=== PATIENT | female | born 1950 | race Caucasian/White ===

== ENCOUNTER 2022-10-05 13:59 | Outpatient (CLI) | payer MEDICARE, SELFPAY ==
--- NOTE | ~2022-10-05 | XR_ITS ---
XR hand RT min 3V 10/05/2022 14:25 Indication: Right hand pain Procedure: 4 views of the right hand Comparison: No prior studies for comparison. Findings: Osteopenia. There is polyarticular osteoarthritis with ventral subluxation at the second-fi fth MCP joints. Degenerative changes involve the hand and wrist. No acute fracture or traumatic malal ignment. 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 Reviewed, dictated and finalized at location A. 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
== END 2022-10-05 14:00 | disposition home or self-care (01) ==
PROVIDERS: PCP Family Medicine; Visit Provider Physician Assistant
DX: S69.90XA Unspecified injury of unspecified wrist, hand and finger(s), initial encounter (principal); M19.041 Primary osteoarthritis, right hand; X58.XXXA Exposure to other specified factors, initial encounter
CPT/HCPCS: 73130

== ENCOUNTER 2022-12-06 13:20 | Outpatient (CLI) | payer MEDICARE, SELFPAY ==
--- NOTE | ~2022-12-06 | MM_ITS ---
EXAMINATION: MM screening kurt BI w santosh HISTORY: Screening mammogram TECHNIQUE: Craniocaudal and mediolateral oblique 3-D tomosynthesis images were obtained and synthetic 2-D images were generated. CAD analysis was submitted and interpreted. COMPARISON: 04/06/2018, 05/30/2016, 08/08/2013 bilateral screening mammogram examinations BREAST PARENCHYMAL COMPOSITION: There are scattered areas of fibroglandular density. FINDINGS: There is no evidence of suspicious mass, calcification, or architectural distortion to sugg est malignancy in either breast. There has been no suspicious interval change. IMPRESSION: 1. No mammographic evidence of malignancy. 2. Recommend routine screening mammography in one year. BI-RADS Category 1: Negative Reviewed, dictated and finalized at location A.
--- NOTE | ~2022-12-06 | DEXA_ITS ---
Bone Density Report Name: JENNIFER FREDERICK I Age: 72 Sex: Female Ethnicity: White Date of : 1950 Indication: postmenopausal; screening for osteoporosis; height loss; Referring Provider: KENNETH CONWAY Study: Bone densitometry was performed. Exam Date: December 06, 2022 Accession number: [id number] Bone Density: Region BMD T-score Z-score Classification AP Spine(L1-L4) 1.180 1.2 3.5 Normal Femoral Neck (Left) 0.776 -0.7 1.3 Normal Total Hip (Left) 0.760 -1.5 0.2 Osteopenia Femoral Neck (Right) 0.691 -1.4 0.5 Osteopenia Total Hip (Right) 0.867 -0.6 1.0 Normal Total Hip Mean 0.814 -1.1 0.6 Osteopenia World Health Organization criteria for BMD impression classify patients as: Normal (T-score at or above -1.0), Osteopenia (T-score between -1.0 and -2.5), or Osteoporosis (T-score at or below -2.5). 10-year Fracture Risk(1): Major Osteoporotic Fracture 11% Hip Fracture 1.7% Reported Risk Factors: [place] (), Neck BMD=0.691, BMI=25.1 (1) FRAX(R) Version 3.08. Fracture probability calculated for an untreated patient. Fracture probability may be lower if the patient has received treatment. Previous Exams: Region Exam Age BMD T-score BMD Change BMD Change Date g/cm2 vs Baseline vs Previous AP Spine (L1-L4) 12/06/2022 72 1.180 1.2 -0.041 (-3.4%) -0.041 (-3.4%) 05/30/2016 66 1.221 1.6 Total Hip(Left) 12/06/2022 72 0.760 -1.5 -0.147 (-16.2% -0.147 (-16.2% 05/30/2016 66 0.907 -0.3 Total Hip(Right) 12/06/2022 72 0.867 -0.6 -0.047 (-5.1%) -0.047 (-5.1%) 05/30/2016 66 0.914 -0.2 *Denotes significance at 95% confidence level, LSC for AP Spine = 0.022 g/cm2, LSC for Total Hip = 0.027 g/cm2 Clinical Information Provided by Patient: Has used the following medications: Vitamin D, Calcium Patient maximum height was 67 Menopause Age: 51 Drinks caffeinated beverages Onset of menses at age 13 Number of children 0 Impression: The patient has low bone mass, based on the Left Total Hip T-score. The patient has an estimated ten-year risk of hip fracture of 1.7% and an estimated ten-year risk of major fracture of 11%, based on the WHO FRAX algorithm. The BMD for the AP Spine (L1-L4) decreased, changing by -3.4% since the last DXA exam. The BMD for the Total Hip(Left) decreased, changing by -16.2% since the last DXA exam. The BMD for the Total Hip(Right) decreased, changing by -5.1% since the last DXA e
== END 2022-12-06 13:21 | disposition home or self-care (01) ==
LOC: ANHIMG 13:25
PROVIDERS: PCP Family Medicine; Visit Provider Physician Assistant Medical
DX: Z12.31 Encounter for screening mammogram for malignant neoplasm of breast (principal); N95.1 Menopausal and female climacteric states; M85.851 Other specified disorders of bone density and structure, right thigh; M85.852 Other specified disorders of bone density and structure, left thigh
CPT/HCPCS: 77063; 77067; 77080

== ENCOUNTER 2024-06-03 14:08 | Inpatient (IN) | payer MEDICARE, SELFPAY ==
[2024-06-03] VITALS (19 sets, daily range): BP systolic 122–151; BP diastolic 59–80; PULSE 75–106; RESP 13–18; TEMP 36.5–36.7; O2SAT 92–98; BMI 24.3
--- NOTE | ~2024-06-03 | XR_ITS ---
EXAMINATION: XR hip LT 2V w AP pelvis DATE: 06/03/2024 15:55 INDICATION: Fall. TECHNIQUE: An anteroposterior view of the pelvis and 2 views of left hip were obtained. COMPARISON: None. FINDINGS: There is a subcapital fracture of left femoral neck. The distal fracture fragment demonstra cricket 3.0 cm shortening, 1.6 cm anterior displacement, and varus angulation. There is mild left hip ost eoarthritis. There is at least mild lumbar spondylosis. IMPRESSION: 1. Subcapital fracture of left femoral neck. 2. Mild left hip osteoarthritis. Reviewed, dictated and finalized at location A. ICAL TECHNICIAN
--- NOTE | ~2024-06-03 | CT_ITS ---
EXAMINATION: CT brain wo con DATE: 06/03/2024 14:53 INDICATION: Fall with posterior head injury TECHNIQUE: Computed tomography (CT) of the head was performed without intravenous contrast. Sagittal and coronal reconstructions were performed. The mA was adjusted according to patient size. Iterative reconstruction technique was employed. The dose-length product was 681.00 mGy-cm. COMPARISON: head CT dated 03/05/17 FINDINGS: Bilateral parietal scalp hematomas, left greater than right. No calvarial fracture. No acute intracra nial hemorrhage, acute infarction or abnormal extra axial fluid collection. There is mild to moderate scattered white matter hypoattenuation consistent with chronic small vessel ischemic disease. Symmet ellen prominence of the sulci and ventricles consistent with mild to moderateage-appropriate diffuse ce rebral volume loss. No mass/mass effect. Changes of bilateral intraocular lens replacement. The orbi ts and mastoid air cells are normal. Partial opacification of the posterior most left ethmoid air maryellen l. IMPRESSION: 1. No fracture or acute intracranial process. 2. Age-related changes including mild to moderate diffuse volume loss and mild to moderate scattered white matter hypoattenuation consistent with chronic small vessel ischemic disease. Reviewed, dictated and finalized at location A. GENCY VEHICLE DISPATCHER IMPRESSION: 1. No fracture or acute intracranial process. 2. Age-related changes including mild to moderate diffuse volume loss and mild to moderate scattered white matter hypoattenuation consistent with chronic smal l vessel ischemic disease.
--- NOTE | ~2024-06-03 | XR_ITS ---
EXAMINATION: XR hip LT min 2V DATE: 06/06/2024 16:25 INDICATION: Bipolar left hip hemiarthroplasty. Postop. TECHNIQUE: 2 views of left hip were obtained. COMPARISON: Left hip radiographs 06/03/2024 FINDINGS: There is a total left hip arthroplasty in near-anatomic alignment. No fracture. There is ga s in the soft tissues, consistent with recent surgery. IMPRESSION: 1. Total left hip arthroplasty in near-anatomic alignment. Reviewed, dictated and finalized at location A. ER POWDER BLENDER
--- NOTE | ~2024-06-03 | CT_ITS ---
EXAMINATION: CT cervical spine wo con DATE: 06/03/2024 14:53 INDICATION: Fall. TECHNIQUE: Computed tomography (CT) of the cervical spine was performed without intravenous contrast. Automated exposure control and iterative reconstruction technique were employed. The dose-length pro duct was 241.97 mGy-cm. COMPARISON: None FINDINGS: There is 5 degrees dextrocurvature of cervical spine. There is 2 mm retrolisthesis of C3 on C4, C4 on C5, and C5 on C6. Vertebral body heights are normal. There is mildly decreased disc height at C2-C3, severely decreased disc height from C3-C4 through C6-C7, and mildly decreased disc height at C7-T1. The following disc levels are specifically discussed: C2-C3: There is mild bilateral uncovertebral joint osteoarthritis. There is mild right and severe lef t facet joint osteoarthritis. There is mild left neural foraminal stenosis. There is no central canal stenosis. C3-C4: There is severe bilateral uncovertebral joint osteoarthritis. There is severe bilateral facet joint osteoarthritis. There is mild bilateral neural foraminal stenosis. There is mild central canal stenosis. C4-C5: There is severe bilateral uncovertebral joint osteoarthritis. There is severe bilateral facet joint osteoarthritis. There is mild right and moderate left neural foraminal stenosis. There is mild central canal stenosis. C5-C6: There is severe bilateral uncovertebral joint osteoarthritis. There is severe bilateral facet joint osteoarthritis. There is mild right and moderate left neural foraminal stenosis. There is mild central canal stenosis. C6-C7: There is severe bilateral uncovertebral joint osteoarthritis. There is severe bilateral facet joint osteoarthritis. There is mild bilateral neural foraminal stenosis. There is mild central canal stenosis. C7-T1: There is no uncovertebral joint osteoarthritis. There is severe bilateral facet joint osteoart hritis. There is mild bilateral neural foraminal stenosis. There is no central canal stenosis. IMPRESSION: 1. No fracture. 2. Severe cervical spondylosis. Reviewed, dictated and finalized at location A. SHREDDER TENDER
--- NOTE | ~2024-06-03 | XR_ITS ---
EXAMINATION: XR chest 1V portable DATE: 06/03/2024 20:01 INDICATION: Fall. TECHNIQUE: A single frontal view of the chest was obtained. COMPARISON: Chest 2 views 03/02/2011, chest CT 04/02/2015 FINDINGS: A calcified right lung nodule and calcified right hilar and mediastinal lymph nodes are con sistent with old granulomatous disease. No pleural effusion or pneumothorax. The heart size is normal . There is a large hiatal hernia. IMPRESSION: 1. Large hiatal hernia. Reviewed, dictated and finalized at location A. DELIVERER IMPRESSION: 1. Large hiatal hernia.
[2024-06-03] MEDS: SODIUM CHLORIDE 0.9% IV 1,000 ML 999 ML IV CONT (16:00)
[2024-06-03] MEDS: KETOROLAC 15 MG/ML VIAL (*BKC) IV PUSH (16:00)
[2024-06-03 17:53] LABS: Basophils Percent Auto 0.2 % (0.2-1.2); Eosinophils Percent Auto 0.2 % (0-4.4); Hematocrit 36.1 % (37.0-47.0); Hemoglobin 11.9 g/dL (12.0-15.0); Immature Granulocyte Absolute 0.06 K/mm3 (0.00-0.031); Immature Granulocyte Percent A 0.5 % (0-0.5); Mean Corpuscular Hemoglobin 30.5 pg (26-34); Mean Corpuscular Volume 92.6 fl (80-100); Mean Platelet Volume 9.2 fl (7.4-10.4); Monocytes Absolute Auto 0.7 K/mm3 (0.1-0.6); Monocytes Percent Auto 5.9 % (2.6-8.5); Neutrophils Absolute Auto 10.7 K/mm3 (1.3-6.7); Neutrophils Percent Auto 88.2 % (45.5-73.1); Platelet Count Result 199 k/mm3 (150-375); Red Cell Distribution Width 13.8 % (11.5-14.5); White Blood Count 12.1 K/mm3 (4.5-10.0)
[2024-06-03 18:08] LABS: Alanine Aminotransferase 17 U/L (6-35); Albumin Level 3.8 g/dL (3.5-5.1); Alkaline Phosphatase 86 U/L (38-126); Anion Gap 3 mmol/L (4-12); Aspartate Amino Transferase 24 U/L (14-36); Bilirubin,Total 0.5 mg/dL (0.2-1.3); Blood Urea Nitrogen 9 mg/dL (7-17); Calcium 8.3 mg/dL (8.4-10.2); Carbon Dioxide 23 mmol/L (22-30); Chloride 106 mmol/L (98-107); Estimated CRCL calculation 55 ml/min; Estimated Glomerular Filt Rate > 60; Glucose 103 mg/dL (65-110); Potassium 3.8 mmol/L (3.4-5.0); Sodium 132 mmol/L (137-145)
[2024-06-03 18:09] LABS: INR 1.1; Prothrombin Time 14.3 Seconds (11.1-14.7)
--- NOTE | 2024-06-03 18:24 | ED_ITS ---
HPI - General Adult General Chief complaint: Extremity Injury, Lower Stated complaint: glf History of Present Illness HPI narrative: This is a 74-year-old female presenting after a ground level fall. She bent over to adjust her cat scratching post and fell backwards onto her left hip striking her head. she has not been able to bear weight since the fall. He did not lose consciousness. She does not use blood thinners. She called an ambulance and was brought to the hospital for Related Data Home Medications ?Medication ?Instructions ?Recorded ?Confirmed ?Last Taken ?Type fexofenadine 180 mg tablet 180 mg PO DAILY 10/21/20 06/03/24 06/03/24 History (Toya Allergy) multivitamin 1 tablet PO DAILY 10/21/20 06/03/24 Unknown History melatonin 10 mg capsule 10 mg PO QHS PRN insomnia 04/27/21 06/03/24 Unknown History Allergies Allergy/AdvReac Type Severity Reaction Status Date / Time oxytetracycline Allergy Unknown Unknown Verified 06/03/24 21:10 [facility] Past Medical History Medical History Normal colonoscopy Hiatal hernia Anxiety Surgical History Surgical History History of esophagogastroduodenoscopy (EGD) Family History Family History Other Family history of arthritis Hypertension Social History Social History Social History: POA: Dontrell (step daughter), she has a living will Smoking status: Never smoker Second hand tobacco smoke exposure: No Alcohol intake: never Substance use: never Substance use type: does not use Do You Feel Safe in your Home?: No Lack of Transportation: No Lack of Food: Never True Current Housing: I Have Housing Concerned About Future Housing: No Difficulty Paying Gas/Electric Bills: No Difficulty Paying for Meds: No Currently Unemployed: No Difficulty w/ Childcare or Family Care: No Living arrangements: [facility] Additional living arrangements comments: alone Occupation/Education: retired Gender identity (if verbalized by the patient): Female Spiritual care concerns: No Agree to blood products: Yes Exam 2 Narrative: APPEARANCE: No apparent distress. Head: atraumatic. EYES: EOMI, NOSE: Atraumatic NECK: Trachea midline RESPIRATORY: No increased rate of breathing clear to auscultation CARDIOVASCULAR: RRR, no peripheral edema ABDOMINAL: Non-distended soft nontender MUSCULOSKELETAl: left leg is shortened and laterally rotated, pulses intact, sensation and motor function intact NEURO: Alert. Moving 4/4 extremities SKIN:: Warm, dry. Normal color PSYCHIATRIC: Normal affect Course Vital Signs Vital signs: Vital Signs Temperature 97.9 F 06/03/24 14:19 Pulse Rate 76 06/03/24 14:19 Respiratory Rate 16 06/03/24 14:19 Blood Pressure 146/72 H 06/03/24 14:19 Pulse Oximetry 98 06/03/24 14:19 Oxygen Delivery Room Air 06/03/24 14:19 Temperature 97.8 F 06/03/24 16:59 Pulse Rate 83 06/03/24 16:59 Respiratory Rate 16 06/03/24 16:59 Blood Pressure 136/77 06/03/24 16:59 Pulse Oximetry 95 06/03/24 16:59 Oxygen Delivery Room Air 06/03/24 14:19 Medical Decision Making MDM Narrative Medical decision making narrative: -Course: 74-year-old female presenting after a ground level fall. Trauma workup significant for a subcapital left hip fracture. CT head and neck unremarkable. Screening lab work and chest x-ray unremarkable. Patient will be admitted hospital for further -DDX includes but is not limited to: hip fracture, UTI, pneumonia -Co-morbidities complicating care: Anxiety depression -Social determinants of health: patient lives on her own, ambulatory, without denies drugs or alcohol -Independent interpretation of studies: labs and imaging reviewed Independent EKG interpretation: Rhythm [sinus], Rate [98], [place] -[normal], [place] -[normal], QRS [narrow], QTC [normal], T waves -[negative for concerning inversions], ST Segments - [Negative for concerning elevations] Final interpretations: Sinus -Discussion of Management/Consultants:Kira Webster -Shared decision making / Disposition:admitted. Vital Signs Vital Signs: Vital Signs Temperature 97.9 F 06/03/24 14:19 Pulse Rate 76 06/03/24 14:19 Respiratory Rate 16 06/03/24 14:19 Blood Pressure 146/72 H 06/03/24 14:19 Pulse Oximetry 98 06/03/24 14:19 Oxygen Delivery Room Air 06/03/24 14:19 Temperature 97.8 F 06/03/24 16:59 Pulse Rate 83 06/03/24 16:59 Respiratory Rate 16 06/03/24 16:59 Blood Pressure 136/77 06/03/24 16:59 Pulse Oximetry 95 06/03/24 16:59 Oxygen Delivery Room Air 06/03/24 14:19 Lab Data 06/03/24 17:39 06/03/24 17:39 Labs: Lab Results 06/03/24 Range/Units 17:39 WBC Pending RBC Pending Hgb Pending Hct Pending MCV Pending MCH Pending MCHC Pending RDW Pending Plt Count Pending MPV Pending Immature Gran % (Auto) Pending Neut % (Auto) Pending Lymph % (Auto) Pending Ness % (Auto) Pending Eos % (Auto) Pending Baso % (Auto) Pending Lymph # (Auto) Pending Ness # (Auto) Pending Eos # (Auto) Pending Baso # (Auto) Pending Abs Immat Gran (auto) Pending Absolute Neuts (auto) Pending Absolute Nucleated RBC Pending Nucleated RBC % Pending PT 14.3 (11.1-14.7) Seconds INR 1.1 APTT 33.0 (22.3-36.8) Seconds Sodium 132 L (137-145) mmol/L Potassium 3.8 (3.4-5.0) mmol/L Chloride 106 (98-107) mmol/L Carbon Dioxide 23 (22-30) mmol/L Anion Gap 3 L (4-12) mmol/L BUN 9 (7-17) mg/dL Creatinine 0.70 (0.7-1.0) mg/dL Estim Creat Clear Calc 55 ml/min Estimated GFR > 60 (59 - ) Glucose 103 (65-110) mg/dL Calcium 8.3 L (8.4-10.2) mg/dL Total Bilirubin 0.5 (0.2-1.3) mg/dL AST 24 (14-36) U/L ALT 17 (6-35) U/L Alkaline Phosphatase 86 (38-126) U/L Total Protein 6.0 L (6.3-8.2) g/dL Albumin 3.8 (3.5-5.1) g/dL Discharge Plan Discharge Clinical Impression: Hip fracture Patient Disposition: Still a Patient Condition: Stable Patient Language: Mohawk Prescriptions: No Action fexofenadine [Toya Allergy] 180 mg tablet 180 mg PO DAILY multivitamin Tablet 1 tablet PO DAILY melatonin 10 mg capsule 10 mg PO QHS PRN (Reason: insomnia) bupropion HCl 100 mg tablet sustained-release 12 hr 100 mg PO QAM Qty: 30 3RF trazodone 50 mg tablet 50 mg PO QHS Qty: 90 4RF citalopram 40 mg tablet 40 mg PO DAILY Qty: 90 1RF alprazolam 0.5 mg tablet 0.5 mg PO TID PRN (Reason: anxiety) Qty: 90 1RF Follow-up/Referrals: Praveena Acosta MD [Primary Care Provider] -
[2024-06-03 19:06] LABS: Add Urine Microscopic? NO; Appearance Urine Clear (Clear); Bilirubin Urine Negative (Negative); Blood Urine Negative (Negative); Color Urine Yellow (Yellow); Glucose Urine UA Negative (Negative); Ketones Urine Trace mg/dL (Negative); Leukocyte Esterase Ur Negative LEU/UL (Negative); Nitrate Urine Negative (Negative); Protein Urine Negative (Negative); Urobilinogen Urine 0.2 mg/dL (<2.0); pH Urine 6.5 (5.0-9.0)
[2024-06-03] MEDS: ACETAMINOPHEN 500 MG TABLET 1000 MG PO (19:25)
--- NOTE | 2024-06-03 19:53 | ECG_ITS ---
Test Date: 2024-06-03 20:23:01 Measurements Intervals [place] Rate: 98 P: 56 W[place]: 204 QRS: -59 QRSD: 109 T: 62 QT: 386 QTc: 495 Interpretive Statements SINUS RHYTHM LEFT ANTERIOR FASCICULAR BLOCK [QRS AXIS <= -45, QR IN I, RS IN II] NONSPECIFIC ST AND T-WAVE ABNORMALITY No previous ECG available for comparison Electronically Signed On 06-04-2024 14:22:13 TALENT DIRECTOR by Cassi Osorio M.D.
--- NOTE | 2024-06-03 21:36 | P.HP_ITS ---
H&P: HPI History of Present Illness Date/Time: 06/03/24 20:50 Chief Complaint: Fall with left hip pain Narrative: 74-year-old female with past medical history of anxiety, depression hiatal hernia and osteopenia who presented to the ER via EMS after falling at [facility]. She reports that she was sweeping of the debris from her cat scratching tree when she lost her balance. She fell backwards and hit her head twice. She denies any preceding lightheadedness, dizziness or any loss of consciousness following the fall. She did have immediate pain to the left hip and noticed that her leg was rotated to the side added odd angle. She reports that she is not having any pain in the hip as long as she has not moved but with any movement the pain is quite severe. She does have chronic flat feet and is post to ambulate with a cane but she does not ambulate with a cane in her apartment. She had a Kelsey catheter placed while in the ER. She denies any preceding urinary symptoms. She has been having normal bowel movements. She denies any chest pain or shortness of breath. She does report significant anxiety that is been an ongoing issue since her about 7 years ago. She reports that she initially had to sore spots on her scalp after the fall which have resolved. Review of Systems 2 Review of Systems: 12 systems were reviewed with pertinent positives and negatives per HPI. Except as documented in the HPI, all other systems were reviewed and are negative. [facility] Past Medical History Medical History (Updated 06/03/24 @ 22:03 by Amberly Webster DO) Osteopenia DEXA scan 2022 demonstrated T-score-1.9 left hip Normal colonoscopy Hiatal hernia Anxiety Surgical History Surgical History (Updated 06/03/24 @ 21:54 by Amberly Webster DO) Dental root implant present Lower jaw History of left knee replacement (03/2015) Dr. Shankar Malone Status post cataract extraction of both eyes with insertion of intraocular lens History of esophagogastroduodenoscopy (EGD) Family History Family History Other Family history of arthritis Hypertension Social History Social History (Updated 06/03/24 @ 21:56 by Amberly Webster DO) Social History: She lives in [facility] [place] [facility]. She ambulates with a cane. To lifelong nonsmoker and denies alcohol use. She has a cat. Code status: Currently full code but she is unsure if she would actually want her wrote measures if her heart were to stop. She wants some time to consider her options. POA: Dontrell (step daughter), she has a living will Smoking status: Never smoker Second hand tobacco smoke exposure: No Alcohol intake: never Substance use: never Substance use type: does not use Do You Feel Safe in your Home?: No Lack of Transportation: No Lack of Food: Never True Current Housing: I Have Housing Concerned About Future Housing: No Difficulty Paying Gas/Electric Bills: No Difficulty Paying for Meds: No Currently Unemployed: No Education: Bachelor's Degree Difficulty w/ Childcare or Family Care: No Living arrangements: [facility] Additional living arrangements comments: [place] independently. She has a cat. Occupation/Education: retired Gender identity (if verbalized by the patient): Female Spiritual care concerns: No Agree to blood products: Yes Meds Home Medications and Allergies Home Medications ?Medication ?Instructions ?Recorded ?Confirmed ?Type fexofenadine 180 mg tablet 180 mg PO DAILY 10/21/20 06/03/24 History (Toya Allergy) multivitamin 1 tablet PO DAILY 10/21/20 06/03/24 History melatonin 10 mg capsule 10 mg PO QHS PRN insomnia 04/27/21 06/03/24 History trazodone 50 mg tablet 50 mg PO QHS #90 tabs 12/07/23 06/03/24 Rx citalopram 40 mg tablet 40 mg PO DAILY #90 tabs 01/20/24 06/03/24 Rx bupropion HCl 100 mg tablet,12 hr 100 mg PO QAM #30 tabs 04/02/24 06/03/24 Rx sustained-release alprazolam 0.5 mg tablet 0.5 mg PO TID PRN anxiety #90 tabs 04/10/24 06/03/24 Rx Allergies Allergy/AdvReac Type Severity Reaction Status Date / Time oxytetracycline Allergy Unknown Unknown Verified 06/03/24 21:10 Vital Signs Vital Signs - 24 hr 06/03/24 14:19 06/03/24 15:00 06/03/24 15:30 Temperature 97.9 F 97.8 F 97.8 F Pulse Rate 76 77 75 Respiratory Rate 16 14 16 Blood Pressure 146/72 H 126/76 151/79 H Pulse Oximetry 98 92 93 Oxygen Delivery Room Air 06/03/24 16:00 06/03/24 16:59 06/03/24 17:00 Temperature 97.8 F 97.8 F 97.9 F Pulse Rate 76 83 90 Respiratory Rate 16 16 16 Blood Pressure 150/80 H 136/77 147/75 H Pulse Oximetry 97 95 96 Oxygen Delivery 06/03/24 18:00 06/03/24 18:30 Temperature 97.9 F 97.7 F Pulse Rate 106 H 102 H Respiratory Rate 14 13 Blood Pressure 126/74 135/69 Pulse Oximetry 98 97 Oxygen Delivery Exam 2 Narrative: Weight 69 kg BMI 25.3 Const: Other: No acute distress, well-developed well-nourished, appears older than stated age HENMT: Other: Head is normocephalic but does have a small area of edema/hematoma to the right side of the crown of the head, mucous membranes are tacky, dental implants in place Eyes: Other: Pupils are equal and reactive with evidence of bilateral lens replacements, no scleral icterus, patient does intermittently close 1 eye or the other she states she does this when she is tired she denies any double vision or acute changes in vision Neck: Other: No JVD, no gross lymphadenopathy Resp: Other: Clear to auscultation bilaterally, no increased work of breathing Cardio: Other: The regular rate, regular rhythm, 2+ bilateral radial pedal pulses GI: Other: Soft, nontender, nondistended, positive bowel sounds : Other: Kelsey catheter in place with clear light yellow urine Skin: Other: Large bruise to the dorsum of the right hand, mild pallor, non jaundice, normal temperature to touch Neuro: Other: Alert oriented x4, speech is clear, no facial asymmetry, moves all extremities equally with the exclusion of the left lower extremity with known fracture, no localizing neurologic deficits noted during the course of conversation, patient does intermittently close 1 eye or the other but is able to open her eyes and focus on examiner and has otherwise normal extraocular movements Extrem: Other: The left lower extremity it is externally rotated at the hip and slightly shortened, pes planus of bilateral feet left greater than right Psych: Other: She reports anhedonia and anxiety but is otherwise pleasant and cooperative, judgment and insight intact H&P: Results Labs Labs: Laboratory Tests 06/03/24 17:39 06/03/24 17:39 06/03/24 17:39 WBC 12.1 H RBC 3.90 L Hgb 11.9 L Hct 36.1 L MCV 92.6 MCH 30.5 MCHC 33.0 RDW 13.8 Plt Count 199 MPV 9.2 Immature Gran % (Auto) 0.5 Neut % (Auto) 88.2 H Lymph % (Auto) 5.0 L [place] % (Auto) 5.9 Eos % (Auto) 0.2 Baso % (Auto) 0.2 Lymph # (Auto) 0.60 L [place] # (Auto) 0.7 H Eos # (Auto) 0.0 Baso # (Auto) 0.0 Abs Immat Gran (auto) 0.06 H Absolute Neuts (auto) 10.7 H Absolute Nucleated RBC 0.000 Nucleated RBC % 0.0 PT 14.3 INR 1.1 APTT 33.0 Sodium 132 L Potassium 3.8 Chloride 106 Carbon Dioxide 23 Anion Gap 3 L BUN 9 Creatinine 0.70 Estim Creat Clear Calc 55 Estimated GFR > 60 Glucose 103 Calcium 8.3 L Total Bilirubin 0.5 AST 24 ALT 17 Alkaline Phosphatase 86 Total Protein 6.0 L Albumin 3.8 Urine Color Yellow Urine Appearance Clear Urine pH 6.5 Ur Specific [place] 1.010 Urine Protein Negative Urine Glucose (UA) Negative Urine Ketones Trace H Ur Blood (Man) Negative Urine Nitrate Negative Urine Bilirubin Negative Urine Urobilinogen 0.2 Leukocyte Esterase Rfl Negative Impressions Head CT 06/03/24 14:59 (some motion artifact noted) IMPRESSION: 1. No fracture or acute intracranial process. 2. Age-related changes including mild to moderate diffuse volume loss and mild to moderate scattered white matter hypoattenuation consistent with chronic small vessel ischemic disease. Cervical Spine CT 06/03/24 15:04 IMPRESSION: 1. No fracture. 2. Severe cervical spondylosis. Hip/Pelvis X-Ray 06/03/24 15:57 IMPRESSION: 1. Subcapital fracture of left femoral neck. 2. Mild left hip osteoarthritis. Chest X-Ray 06/03/24 20:07 IMPRESSION: 1. Large hiatal hernia. All imaging (within my scope of practice) and EKGs personally reviewed and interpreted. And unless stated otherwise agree with radiologic and cardiology interpretation. Assessment and Plan Assessment and plan (1) Hip fracture: Qualifiers: Encounter type: initial encounter Fracture type: closed Laterality: l eft Qualified Code(s): S72.002A - Fracture of unspecified part of neck of left femur, initial encounter for closed fracture Code(s): S72.009A - Fracture of unspecified part of neck of unspecified femur, initial encounter for closed fracture Status: Acute (2) Depression: Qualifiers: Depression Type: persistent depressive disorder Qualified Code(s): F 34.1 - Dysthymic disorder Code(s): F32.A - Depression, unspecified Status: Acute (3) Acute hyponatremia: Code(s): E87.1 - Hypo-osmolality and hyponatremia Status: Acute (4) QT prolongation: Code(s): R94.31 - Abnormal electrocardiogram [ECG] [EKG] Status: Acute Plan Patient has left hip fracture. Fracture due to ground level fall with no preceding symptoms. Interestingly enough this is the same hip that demonstrated osteopenia on her DEXA scan in 2022. With patient surgery has been consulted. Patient has Toradol and Dilaudid ordered as needed for pain. Kelsey catheter has been placed for urine management due to immobility. Patient does have some mild acute hyponatremia. Possibly early SIADH verses some component of dehydration given patient does have mild ketones in her urine. Patient received 1 L normal saline bolus in the ER and will receive 1 L of LR at 150 mL an hour which will be stopped in the morning. Will repeat electrolyte panel in a.m. and monitor urine output closely. Patient's EKG did demonstrate pulmonary disease pattern with QT interval upper limit of normal. Although reluctant to do so given her ongoing anxiety and depression symptoms I do not 1 hold her anxiety medications but given QT prolongation I will hold Celexa for the short term. Will consider repeat EKG in 24-48 hours for re-evaluation. Quality VTE Prophylaxis VTE prophylaxis: mechanical ordered (SCDs) Hospitalist MIPS Advance Care Plan I have confirmed that the patient's Advanced Care Plan is present, code status is documented, or surrogate decision maker is listed in patient medical record.: Yes Medication Reconciliation I have utilized all available resources to obtain, update and review the patients current medications (includes all prescriptions, OTC, herbals, cannabis, and nutritional supplements).: Yes
--- NOTE | 2024-06-03 22:11 | PC.NURSE ---
Admission report to WILLIAN Massey.
[2024-06-03] MEDS: traZODone HCL 50 MG TABLET PO (23:03)
[2024-06-03] MEDS: LACTATED RINGERS 1,000 ML 125 ML IV CONT (23:03)
--- NOTE | 2024-06-04 02:44 | ADMGEN ---
This patient, Dayan Triplett, was admitted to 3 [facility] Surg Room 323-02. Patient/family oriented to hospital policies and general routines including ID bracelet, bed and alarms, visiting hours, pain management, procedures, bathroom and other care routines, personal items, smoking policy, room service/diet, and visiting hours. Information on how to activate the Rapid Response Team has been discussed. Patient/Family are encouraged to report perceived risks to care and to ask questions if they do not understand what they are told or what they should do.
[2024-06-04] MEDS: KETOROLAC 30 MG/ML VIAL (*BKC) IV PUSH ×3 (04:19→21:43)
[2024-06-04 06:00] VITALS: BP 133/64; PULSE 89; RESP 18; TEMP 36.8; O2SAT 93
[2024-06-04 07:10] LABS: Hematocrit 35.1 % (37.0-47.0); Hemoglobin 11.3 g/dL (12.0-15.0); Mean Corpuscular HGB Conc 32.2 g/dl (32-36); Mean Corpuscular Hemoglobin 30.4 pg (26-34); Mean Corpuscular Volume 94.4 fl (80-100); Mean Platelet Volume 9.3 fl (7.4-10.4); Platelet Count Result 186 k/mm3 (150-375); Red Blood Count 3.72 M/mm3 (4.2-5.4); Red Cell Distribution Width 13.9 % (11.5-14.5); White Blood Count 6.6 K/mm3 (4.5-10.0)
[2024-06-04 07:14] LABS: Anion Gap 1 mmol/L (4-12); Blood Urea Nitrogen 9 mg/dL (7-17); Calcium 8.7 mg/dL (8.4-10.2); Carbon Dioxide 25 mmol/L (22-30); Chloride 110 mmol/L (98-107); Estimated CRCL calculation 57 ml/min; Estimated Glomerular Filt Rate > 60; Glucose 91 mg/dL (65-110); Potassium 3.8 mmol/L (3.4-5.0); Sodium 136 mmol/L (137-145)
[2024-06-04 08:16] VITALS: O2SAT 94
[2024-06-04] MEDS: LORATADINE 10 MG TABLET PO (08:40)
[2024-06-04] MEDS: MULTIVITAMINS THERAPEUTIC TAB (*BKC) 1 TABLET PO (08:40)
[2024-06-04] MEDS: buPROPion HCL SR (12HR) 100 MG TABCR PO (08:41)
[2024-06-04 12:11] VITALS: BMI 24.3
[2024-06-04 13:44] VITALS: BP 128/75; PULSE 95; RESP 18; TEMP 36.8; O2SAT 94
--- NOTE | 2024-06-04 15:48 | P.PNIM_ITS ---
Progress Note: A&P Assessment and Plan (1) Hip fracture: Qualifiers: Encounter type: initial encounter Fracture type: closed Laterality: left Qualified Code(s): S72.002A - Fracture of unspecified part of neck of left femur, initial encounter for closed fracture Code(s): S72.009A - Fracture of unspecified part of neck of unspecified femur, initial encounter for closed fracture Status: Acute (2) Depression: Qualifiers: Depression Type: persistent depressive disorder Qualified Code(s): F34.1 - Dysthymic disorder Code(s): F32.A - Depression, unspecified Status: Acute (3) Acute hyponatremia: Code(s): E87.1 - Hypo-osmolality and hyponatremia Status: Acute (4) QT prolongation: Code(s): R94.31 - Abnormal electrocardiogram [ECG] [EKG] Status: Acute Plan Patient presents with hip pain after fall found to have left hip fracture. Fracture due to ground level fall with no preceding symptoms. Interestingly enough this is the same hip that demonstrated osteopenia on her DEXA scan in 2022. Orthopedic surgery was consulted. Patient has Toradol and Dilaudid ordered as needed for pain. Kelsey catheter was placed for urine management due to immobility. Patient had mild acute hyponatremia at 132 and she received 1 L normal saline bolus in the ER and was started on LR. Sodium better. IV fluids stopped. WBC was 12K but normal now so probably stress response. EKG showing NSR with LAFB and nonspecific ST and T wave changes. QTc 495. Celexa was held. Assuming care. She is stable for surgical repair. She remains NPO. Check Mag level. Subjective Date/time seen: 06/04/24 15:48 Interval history: 74yo female with anxiety, depression, hiatal hernia and osteopenia here for hip pain after a fall. Assuming care. Chart reviewed. Patient did sustain a head injury but no loss of consciousness. She denies any chest pain, palpitations or shortness of breath prior to the fall. She is up-to-date on her mammogram and bone scan. At [facility], she does walk the stairs and denies any symptoms of chest pain shortness of breath. She has no heart disease, hypertension or hyperlipidemia. She has never had a stress test. Exam Narrative: AF 98.3 128/75 95 18 94% ra Gen - NARD HEENT -NC/AT Chest - CTA bilaterally, nml RR CV - RRR S1/S2 Abd - Soft, NT/ND, Positive BS -Kelsey catheter secured draining clear yellow urine Ext - No pedal edema. 2+ PT pulses. left leg foreshortened. Psych - Nml mood and affect Skin - Warm and dry Objective Data Vital Signs Vital Signs: Vital Signs - 24 hr 06/03/24 16:00 06/03/24 16:59 06/03/24 17:00 Temperature 97.8 F 97.8 F 97.9 F Pulse Rate 76 83 90 Respiratory Rate 16 16 16 Blood Pressure 150/80 H 136/77 147/75 H Pulse Oximetry 97 95 96 Oxygen Delivery 06/03/24 18:00 06/03/24 18:30 06/03/24 19:01 Temperature 97.9 F 97.7 F Pulse Rate 106 H 102 H Respiratory Rate 14 13 Blood Pressure 126/74 135/69 130/74 Pulse Oximetry 98 97 Oxygen Delivery 06/03/24 19:16 06/03/24 19:31 06/03/24 20:01 Temperature Pulse Rate Respiratory Rate Blood Pressure 127/62 122/73 131/72 Pulse Oximetry Oxygen Delivery 06/03/24 21:16 06/03/24 21:31 06/03/24 21:45 Temperature Pulse Rate Respiratory Rate Blood Pressure 140/72 136/59 L Pulse Oximetry 92 Oxygen Delivery 06/03/24 21:46 06/03/24 22:00 06/03/24 22:17 Temperature Pulse Rate Respiratory Rate Blood Pressure 135/79 Pulse Oximetry 92 93 94 Oxygen Delivery 06/03/24 22:50 06/04/24 06:00 06/04/24 08:00 Temperature 98.1 F 98.3 F Pulse Rate 98 89 Respiratory Rate 18 18 Blood Pressure 131/65 133/64 Pulse Oximetry 93 93 Oxygen Delivery Room Air 06/04/24 08:16 06/04/24 13:44 Temperature 98.3 F Pulse Rate 95 Respiratory Rate 18 Blood Pressure 128/75 Pulse Oximetry 94 94 Oxygen Delivery Room Air Intake/Output Intake/Output: Intake & Output 06/01/24 06/02/24 06/03/24 06/04/24 23:59 23:59 23:59 23:59 Intake Total 1000 0 Output Total 1500 Balance 1000 -1500 Meds/Results Medications: Active Medications Generic Name Dose Route Start Last Admin Trade Name Freq PRN Reason Stop Dose Admin Alprazolam 0.5 mg 06/03/24 21:35 Alprazolam (*Crx) 0.5 Mg Tablet PO TID PRN anxiety Bupropion HCl 100 mg 06/04/24 09:00 06/04/24 08:41 Bupropion Hcl Sr (12hr) 100 Mg Tabcr PO 100 mg QAM LUDY Administration Citalopram Hydrobromide 40 mg 06/04/24 09:00 Citalopram Hydrobromide 20 Mg Tablet PO DAILY LUDY Hydromorphone HCl 0.5 mg 06/03/24 20:50 Hydromorphone Hcl Inj (*Crx) 1 Mg/Ml Syr IV PUSH Q4H PRN Pain Rated 7-10 Ketorolac Tromethamine 30 mg 06/03/24 20:50 06/04/24 04:19 Ketorolac 30 Mg/Ml Vial (*Bkc) IV PUSH 06/08/24 20:49 30 mg Q6H PRN Administration Pain Rated 4-6 Loratadine 10 mg 06/04/24 09:00 06/04/24 08:40 Loratadine 10 Mg Tablet PO 10 mg DAILY LUDY Administration Melatonin 10 mg 06/03/24 21:35 Melatonin 5 Mg Tablet PO QHS PRN insomnia Multivitamins Therapeutic 1 tablet 06/04/24 09:00 06/04/24 08:40 Multivitamins Therapeutic Tab (*Bkc) PO 1 tablet DAILY LUDY Administration Trazodone HCl 50 mg 06/03/24 21:35 06/03/24 23:03 Trazodone Hcl 50 Mg Tablet PO 50 mg QHS LUDY Administration Radiology Results: ITS Impressions Head CT 06/03/24 14:59 IMPRESSION: 1. No fracture or acute intracranial process. 2. Age-related changes including mild to moderate diffuse volume loss and mild to moderate scattered white matter hypoattenuation consistent with chronic small vessel ischemic disease. Cervical Spine CT 06/03/24 15:04 IMPRESSION: 1. No fracture. 2. Severe cervical spondylosis. Hip/Pelvis X-Ray 06/03/24 15:57 IMPRESSION: 1. Subcapital fracture of left femoral neck. 2. Mild left hip osteoarthritis. Chest X-Ray 12/17/24 20:07 IMPRESSION: 1. Large hiatal hernia. Labs Labs: Laboratory Results - last 24 hr 06/03/24 06/04/24 17:39 06:30 WBC 12.1 H 6.6 RBC 3.90 L 3.72 L Hgb 11.9 L 11.3 L Hct 36.1 L 35.1 L MCV 92.6 94.4 MCH 30.5 30.4 MCHC 33.0 32.2 RDW 13.8 13.9 Plt Count 199 186 MPV 9.2 9.3 Immature Gran % (Auto) 0.5 Neut % (Auto) 88.2 H Lymph % (Auto) 5.0 L [place] % (Auto) 5.9 Eos % (Auto) 0.2 Baso % (Auto) 0.2 Lymph # (Auto) 0.60 L [place] # (Auto) 0.7 H Eos # (Auto) 0.0 Baso # (Auto) 0.0 Abs Immat Gran (auto) 0.06 H Absolute Neuts (auto) 10.7 H Absolute Nucleated RBC 0.000 Nucleated RBC % 0.0 PT 14.3 INR 1.1 APTT 33.0 Sodium 132 L 136 L Potassium 3.8 3.8 Chloride 106 110 H Carbon Dioxide 23 25 Anion Gap 3 L 1 L BUN 9 9 Creatinine 0.70 0.70 Estim Creat Clear Calc 55 57 Estimated GFR > 60 > 60 Glucose 103 91 Calcium 8.3 L 8.7 Total Bilirubin 0.5 AST 24 ALT 17 Alkaline Phosphatase 86 Total Protein 6.0 L Albumin 3.8 Urine Color Yellow Urine Appearance Clear Urine pH 6.5 Ur Specific [place] 1.010 Urine Protein Negative Urine Glucose (UA) Negative Urine Ketones Trace H Ur Blood (Man) Negative Urine Nitrate Negative Urine Bilirubin Negative Urine Urobilinogen 0.2 Leukocyte Esterase Rfl Negative
--- NOTE | 2024-06-04 15:58 | ECG_ITS ---
Test Date: 2024-06-04 16:33:26 Measurements Intervals [place] Rate: 94 P: 51 MT: 183 QRS: -46 QRSD: 110 T: 70 QT: 286 QTc: 358 Interpretive Statements SINUS RHYTHM PATTERN CONSISTENT WITH PULMONARY DISEASE LEFT ANTERIOR FASCICULAR BLOCK [QRS AXIS <= -45, QR IN I, RS IN II] NONSPECIFIC T-WAVE ABNORMALITY Compared to ECG 06/03/2024 20:23:01 No significant changes Electronically Signed On 06-05-2024 15:50:34 EMERGENCY ROOM PHYSICIAN by Kenny Smith M.D.
[2024-06-04] MEDS: ALPRAZolam (*CRX) 0.5 MG TABLET PO ×2 (16:04→21:40)
--- NOTE | 2024-06-04 16:27 | P.CONOP_ITS ---
Assessment and Plan Assessment and plan (1) Femoral neck fracture: Code(s): S72.009A - Fracture of unspecified part of neck of unspecified femur, initial encounter for closed fracture Status: Acute Assessment and Plan: JENNIFER IS HERE FOR ASSESSMENT OF HER LEFT HIP. SHE HAS A DISPLACED LEFT FEMORAL NECK FACTURE. SHE WILL REQUIRE LEFT TOTAL HIP REPLACEMENT VS HEMIARTHROPLASTY. SHE ASKED ,MANY QUESTIONS AND ALL WERE ANSWERED.WE DISCUSSED THE TYPE OF IMPLANT AND THE RISKS AND COMPLICATIONS WELL THE BENEFITS FOR EITHER IMPLANT. I FEEL THE COMPLETE HIP REPLACEMENT IS WARRANTED DUE TO HER AGE AND LIFE EXPECTANCY AND SHE AGREES. HISTORY, EXAM AND RADIOGRAPHS REVIEWED WITH THE PATIENT. REFERRING PHYSICIAN RECORDS AND IMAGES REVIEWED. CONDITION, NATURE, ETIOLOGY AND COURSE OF NATURAL HISTORY REVIEWED. CONSERVATIVE AND OPERATIVE TREATMENT OPTIONS REVIEWED WELL THE RISKS AND BENEFITS OF EACH. DISCUSSED NONOPERATIVE AND OPERATIVE TREATMENT OPTIONS WITH THE PATIENT. THE PATIENT'S QUESTIONS WERE ANSWERED. THE PATIENT DESIRES OPERATIVE TREATMENT. DISCUSSED ___LEFT TOTAL HIP REPLACEMENT . RISKS OF SURGERY INCLUDING BUT NOT LIMITED TO NEUROVASCULAR DAMAGE, WOUND COMPLICATIONS, BLOOD CLOT, PULMONARY EMBOLUS, STROKE, NV, ANESTHETIC RISKS UP TO AND INCLUDING WERE REVIEWED. CONTINUED PAIN AND POSSIBLE DYSFUNCTION WERE EXPLAINED. NO GUARANTEES WERE OFFERED. THE PATIENT UNDERSTANDS AND WISHES TO PROCEED. ONCE SHE IS CLEARED BY INTERNAL MEDICINE SERVICES WE WILL PROCEED. History of Present Illness HPI Consult date: 06/04/24 Chief complaint: Hip fracture Narrative: JENNIFER WAS CLEANING HER CAT WHEN SHE SLIPPED AND FELL AND INJURED HER LEFT HIP. SHE NOW HAS A LEFT FEMORAL NECK FRACTURE WITH DISPLACEMENT. SHE DENIES ANY OTHER PAIN IN ANY OTHER EXTREMITY. SHE DENIES ANY BACK OR NECK PAIN OR ANY LOC. HISTORY, EXAM AND RADIOGRAPHS REVIEWED WITH THE PATIENT. REFERRING PHYSICIAN RECORDS AND IMAGES REVIEWED. CONDITION, NATURE, ETIOLOGY AND COURSE OF NATURAL HISTORY REVIEWED. CONSERVATIVE AND OPERATIVE TREATMENT OPTIONS REVIEWED WELL THE RISKS AND BENEFITS OF EACH. Review of Systems 2 Review of Systems: All systems reviewed & are unremarkable except as noted in HPI and below PMFSH Past Medical History Medical History Osteopenia DEXA scan 2022 demonstrated T-score-1.9 left hip Normal colonoscopy Hiatal hernia Anxiety Surgical History Surgical History Dental root implant present Lower jaw History of left knee replacement (03/2015) Dr. Shankar Malone Status post cataract extraction of both eyes with insertion of intraocular lens History of esophagogastroduodenoscopy (EGD) Family History Family History Other Family history of arthritis Hypertension Social History Social History Social History: She lives in [facility]. She ambulates with a cane. To lifelong nonsmoker and denies alcohol use. She has a cat. Code status: Currently full code but she is unsure if she would actually want her wrote measures if her heart were to stop. She wants some time to consider her options. POA: Dontrell (step daughter), she has a living will Smoking status: Never smoker Second hand tobacco smoke exposure: No Alcohol intake: never Substance use: never Substance use type: does not use Do You Feel Safe in your Home?: No Lack of Transportation: No Lack of Food: Never True Current Housing: I Have Housing Concerned About Future Housing: No Difficulty Paying Gas/Electric Bills: No Difficulty Paying for Meds: No Currently Unemployed: No Education: Bachelor's Degree Difficulty w/ Childcare or Family Care: No Living arrangements: [facility] Additional living arrangements comments: [place] independently. She has a cat. Occupation/Education: retired Gender identity (if verbalized by the patient): Female Spiritual care concerns: No Agree to blood products: Yes Meds Home Medications and Allergies Home Medications ?Medication ?Instructions ?Recorded ?Confirmed ?Type fexofenadine 180 mg tablet 180 mg PO DAILY 10/21/20 06/03/24 History (Toya Allergy) multivitamin 1 tablet PO DAILY 10/21/20 06/03/24 History melatonin 10 mg capsule 10 mg PO QHS PRN insomnia 04/27/21 06/03/24 History trazodone 50 mg tablet 50 mg PO QHS #90 tabs 12/07/23 06/03/24 Rx citalopram 40 mg tablet 40 mg PO DAILY #90 tabs 01/20/24 06/03/24 Rx bupropion HCl 100 mg tablet,12 hr 100 mg PO QAM #30 tabs 04/02/24 06/03/24 Rx sustained-release alprazolam 0.5 mg tablet 0.5 mg PO TID PRN anxiety #90 tabs 04/10/24 06/03/24 Rx Allergies Allergy/AdvReac Type Severity Reaction Status Date / Time oxytetracycline Allergy Unknown Unknown Verified 06/03/24 21:10 Vital Signs Vital Signs - 24 hr 06/03/24 16:59 06/03/24 17:00 06/03/24 18:00 Temperature 36.6 C 36.6 C 36.6 C Pulse Rate 83 90 106 H Respiratory Rate 16 16 14 Blood Pressure 136/77 147/75 H 126/74 Pulse Oximetry 95 96 98 Oxygen Delivery 06/03/24 18:30 06/03/24 19:01 06/03/24 19:16 Temperature 36.5 C Pulse Rate 102 H Respiratory Rate 13 Blood Pressure 135/69 130/74 127/62 Pulse Oximetry 97 Oxygen Delivery 06/03/24 19:31 06/03/24 20:01 06/03/24 21:16 Temperature Pulse Rate Respiratory Rate Blood Pressure 122/73 131/72 140/72 Pulse Oximetry Oxygen Delivery 06/03/24 21:31 06/03/24 21:45 06/03/24 21:46 Temperature Pulse Rate Respiratory Rate Blood Pressure 136/59 L 135/79 Pulse Oximetry 92 92 Oxygen Delivery 06/03/24 22:00 06/03/24 22:17 06/03/24 22:50 Temperature 36.7 C Pulse Rate 98 Respiratory Rate 18 Blood Pressure 131/65 Pulse Oximetry 93 94 93 Oxygen Delivery 06/04/24 06:00 06/04/24 08:00 06/04/24 08:16 Temperature 36.8 C Pulse Rate 89 Respiratory Rate 18 Blood Pressure 133/64 Pulse Oximetry 93 94 Oxygen Delivery Room Air Room Air 06/04/24 13:44 Temperature 36.8 C Pulse Rate 95 Respiratory Rate 18 Blood Pressure 128/75 Pulse Oximetry 94 Oxygen Delivery Exam 2 Back/Spine/Pelvis: Back: No back tenderness Cervical Spine: normal cervical lordosis, cervical ROM normal and No Cervical spine tenderness T horacic/Lumbar Spine: thoracic and lumbar spine normal to inspection, thoraco- lumbar ROM normal, No pain with thoraco-lumbar ROM, No paraspinal muscle tenderness, No thoracic spinal tenderness and No lumbar spinal tenderness Extrem: Right upper extremity: normal to inspection, shoulder/upper arm normal to inspection and normal ROM; no tenderness and no swelling, elbow/forearm normal to inspection and normal ROM; no tenderness and no swelling, wrist normal to inspection and normal ROM; no tenderness and no swelling and Extremity exam: right hand normal to inspection, normal capillary refill, neuromotor exam normal, neurosensory exam normal and normal ROM of fingers Left upper extremity: shoulder/upper arm inspection abnormal, axillary nerve sensory function normal and normal ROM; no tenderness and no swelling, elbow/forearm normal to inspection and normal ROM; no tenderness and no swelling, wrist normal to inspection and normal ROM; no tenderness and no swelling and hand normal to inspection, normal capillary refill and neuromotor exam normal; no tenderness Right lower extremity: normal to inspection, hip/thigh Details: normal to inspection and normal ROM; no tenderness and no swelling, knee Details: normal to inspection and normal ROM; no tenderness and no swelling, lower leg Details: palpable cord; no tenderness and no localized swelling, ankle Details: normal to inspection and normal ROM; no tenderness and no swelling and foot Details: normal capillary refill, normal to inspection, toes with normal ROM and motor- sensory exam Details: light-touch normal; no tenderness Left lower extremity: hip/thigh Details: abnormal to inspection, tenderness, swelling, abnormal ROM Details: pain with active ROM Details: with ADduction, with ABduction, with extension, with flexion, with internal rotation and with external rotation and pain with passive ROM Details: with ADduction, with ABduction, with extension, with flexion, with internal rotation and with external rotation, ecchymosis and crepitus, knee Details: normal to inspection, normal ROM and knee ligament exam normal; no tenderness and no swelling, lower leg Details: normal to inspection, palpable cord and no edema; no tenderness and no localized swelling, ankle Details: normal to inspection and normal ROM; no tenderness and no swelling and foot Details: normal capillary refill, normal to inspection, toes with normal ROM, vascular exam Details: dorsalis pedis pulse present, posterior tibial pulse present and normal capillary refill and motor-sensory exam light-touch normal; no tenderness Results Labs 06/04/24 06:30 06/04/24 06:30 Labs: Abnormal lab results 06/03/24 06/04/24 Range/Units 17:39 06:30 WBC 12.1 H (4.5-10.0) K/mm3 RBC 3.90 L 3.72 L (4.2-5.4) M/mm3 Hgb 11.9 L 11.3 L (12.0-15.0) g/dL Hct 36.1 L 35.1 L (37.0-47.0) % Neut % (Auto) 88.2 H (45.5-73.1) % Lymph % (Auto) 5.0 L (18.3-44.2) % Lymph # (Auto) 0.60 L (0.9-3.2) K/mm3 [place] # (Auto) 0.7 H (0.1-0.6) K/mm3 Abs Immat Gran (auto) 0.06 H (0.00-0.031) K/mm3 Absolute Neuts (auto) 10.7 H (1.3-6.7) K/mm3 Sodium 132 L 136 L (137-145) mmol/L Chloride 110 H (98-107) mmol/L Anion Gap 3 L 1 L (4-12) mmol/L Calcium 8.3 L (8.4-10.2) mg/dL Total Protein 6.0 L (6.3-8.2) g/dL Urine Ketones Trace H (Negative) mg/dL H & H 06/03/24 06/04/24 Range/Units 17:39 06:30 Hgb 11.9 L 11.3 L (12.0-15.0) g/dL Hct 36.1 L 35.1 L (37.0-47.0) % Coagulation 06/03/24 Range/Units 17:39 INR 1.1 All other labs normal.
[2024-06-04 21:30] VITALS: BP 128/67; PULSE 87; RESP 18; TEMP 36.6; O2SAT 94
[2024-06-04] MEDS: traZODone HCL 50 MG TABLET PO (21:40)
[2024-06-05] MEDS: KETOROLAC 30 MG/ML VIAL (*BKC) IV PUSH ×2 (05:15→17:22)
[2024-06-05 06:00] VITALS: BP 125/68; PULSE 78; RESP 16; TEMP 37; O2SAT 95
[2024-06-05 06:51] LABS: Hematocrit 32.6 % (37.0-47.0); Hemoglobin 10.6 g/dL (12.0-15.0); Mean Corpuscular HGB Conc 32.5 g/dl (32-36); Mean Corpuscular Hemoglobin 30.5 pg (26-34); Mean Corpuscular Volume 93.7 fl (80-100); Mean Platelet Volume 9.5 fl (7.4-10.4); Platelet Count Result 166 k/mm3 (150-375); Red Blood Count 3.48 M/mm3 (4.2-5.4)
[2024-06-05 07:03] LABS: Anion Gap -1 mmol/L (4-12); Blood Urea Nitrogen 11 mg/dL (7-17); Calcium 8.7 mg/dL (8.4-10.2); Carbon Dioxide 25 mmol/L (22-30); Chloride 110 mmol/L (98-107); Estimated CRCL calculation 65 ml/min; Estimated Glomerular Filt Rate > 60; Glucose 90 mg/dL (65-110); Magnesium 2.1 mg/dL (1.6-2.3); Potassium 3.8 mmol/L (3.4-5.0); Sodium 134 mmol/L (137-145)
[2024-06-05] MEDS: buPROPion HCL SR (12HR) 100 MG TABCR PO (08:33)
[2024-06-05] MEDS: LORATADINE 10 MG TABLET PO (08:34)
[2024-06-05] MEDS: MULTIVITAMINS THERAPEUTIC TAB (*BKC) 1 TABLET PO (08:34)
--- NOTE | 2024-06-05 13:16 | P.PNOP_ITS ---
Progress Note: A&P Assessment and Plan (1) Femoral neck fracture: Qualifiers: Encounter type: initial encounter Fracture type: closed Laterality: left Qualified Code(s): S72.002A - Fracture of unspecified part of neck of left femur, initial encounter for closed fracture Code(s): S72.009A - Fracture of unspecified part of neck of unspecified femur, initial encounter for closed fracture Status: Acute Assessment and Plan: Radiographs reveal a displaced left femoral neck fracture. Condition, nature, etiology and course of natural history discussed. Conservative and operative treatment options reviewed as well as the risks and benefits of both. Previously evaluated by Dr. Malone. Patient has been indicated for a ROBERTO rather than a hemiarthroplasty. Risks of surgery including but not limited to neurovascular damage, wound complications, blood clot, pulmonary embolus, stroke, myocardial infarction, anesthetic risks up to and including were reviewed. Continued pain and possible dysfunction were explained. No guarantees were offered. The patient understands and wishes to proceed. Plan: Left ROBERTO by Dr. Malone on 06/06 HOLD Anticoagulation NPO at midnight. Pain control. Bedrest. Kelsey catheter until mobile. Incentive spirometry. SCDs. Plan Reviewed history, exam, radiographs and current labs with attending MD and covering surgeon, Dr. Malone, who agrees with current plan as indicated above. No further recommendations from Dr. Malone at this time. Subjective Subjective Date/Time Seen: 06/05/24 13:16 Interval history: Patient alert, oriented. Awaiting surgery. Pain well controlled. No new concerns aside from being agitated about the wait for surgery. Review of Systems Review of Systems: All systems reviewed & are unremarkable except as noted in HPI and below Exam Const: General: comfortable and no acute distress Resp: Effort & Inspection: normal respiratory effort GI: GI Palp: Yes Soft to palpation Back/Spine/Pelvis: Back: No back tenderness Cervical Spine: normal cervical lordosis, cervical ROM normal and No Cervical spine tenderness Thoracic/Lumbar Spine: thoracic and lumbar spine normal to inspection, thoraco- lumbar ROM normal, No pain with thoraco-lumbar ROM, No paraspinal muscle tenderness, No thoracic spinal tenderness and No lumbar spinal tenderness Extrem: Right upper extremity: normal to inspection, shoulder/upper arm normal to inspection and normal ROM; no tenderness and no swelling, elbow/forearm normal to inspection and normal ROM; no tenderness and no swelling, wrist normal to inspection and normal ROM; no tenderness and no swelling and Extremity exam: right hand normal to inspection, normal capillary refill, neuromotor exam normal, neurosensory exam normal and normal ROM of fingers Left upper extremity: shoulder/upper arm inspection abnormal, axillary nerve sensory function normal and normal ROM; no tenderness and no swelling, elbow/forearm normal to inspection and normal ROM; no tenderness and no swelling, wrist normal to inspection and normal ROM; no tenderness and no swelling and hand normal to inspection, normal capillary refill and neuromotor exam normal; no tenderness Right lower extremity: normal to inspection, hip/thigh Details: normal to inspection and normal ROM; no tenderness and no swelling, knee Details: normal to inspection and normal ROM; no tenderness and no swelling, lower leg Details: palpable cord; no tenderness and no localized swelling, ankle Details: normal to inspection and normal ROM; no tenderness and no swelling and foot Details: normal capillary refill, normal to inspection, toes with normal ROM and motor- sensory exam Details: light-touch normal; no tenderness Left lower extremity: hip/thigh Details: abnormal to inspection, tenderness, swelling, abnormal ROM Details: pain with active ROM Details: with ADduction, with ABduction, with extension, with flexion, with internal rotation and with external rotation and pain with passive ROM Details: with ADduction, with ABduction, with extension, with flexion, with internal rotation and with external rotation, ecchymosis and crepitus, knee Details: normal to inspection, normal ROM and knee ligament exam normal; no tenderness and no swelling, lower leg Details: normal to inspection, palpable cord and no edema; no tenderness and no localized swelling, ankle Details: normal to inspection and normal ROM; no tenderness and no swelling and foot Details: normal capillary refill, normal to inspection, toes with normal ROM, vascular exam Details: dorsalis pedis pulse present, posterior tibial pulse present and normal capillary refill and motor-sensory exam light-touch normal; no tenderness Objective Data Vital Signs Vital Signs: Vital Signs - 24 hr 06/04/24 13:44 06/04/24 20:00 06/04/24 21:30 Temperature 36.8 C 36.6 C Pulse Rate 95 87 Respiratory Rate 18 18 Blood Pressure 128/75 128/67 Pulse Oximetry 94 94 Oxygen Delivery Room Air 06/05/24 06:00 06/05/24 08:30 Temperature 37.0 C Pulse Rate 78 Respiratory Rate 16 Blood Pressure 125/68 Pulse Oximetry 95 Oxygen Delivery Room Air Intake/Output Intake/Output: Intake & Output 06/02/24 06/03/24 06/04/24 06/05/24 23:59 23:59 23:59 23:59 Intake Total 1000 790 0 Output Total 1900 650 Balance 1000 -1110 -650 Meds/Results Medications: Active Medications Generic Name Dose Route Start Last Admin Trade Name Freq PRN Reason Stop Dose Admin Alprazolam 0.5 mg 06/03/24 21:35 06/04/24 21:40 Alprazolam (*Crx) 0.5 Mg Tablet PO 0.5 mg TID PRN Administration anxiety Bupropion HCl 100 mg 06/04/24 09:00 06/05/24 08:33 Bupropion Hcl Sr (12hr) 100 Mg Tabcr PO 100 mg QAM LUDY Administration Citalopram Hydrobromide 40 mg 06/04/24 09:00 Citalopram Hydrobromide 20 Mg Tablet PO DAILY LUDY Sodium Chloride 37.7 ml/ 0 ml 06/06/24 12:00 Morphine Sulfate 2 mg/ INFILTRATE 06/06/24 12:01 Ropivacaine 200 mg/ Ketorolac ONCE ONE Tromethamine 15 mg/ Epinephrine HCl 0.3 mg Hydromorphone HCl 0.5 mg 06/03/24 20:50 Hydromorphone Hcl Inj (*Crx) 1 Mg/Ml Syr IV PUSH Q4H PRN Pain Rated 7-10 Ketorolac Tromethamine 30 mg 06/03/24 20:50 06/05/24 05:15 Ketorolac 30 Mg/Ml Vial (*Bkc) IV PUSH 06/08/24 20:49 30 mg Q6H PRN Administration Pain Rated 4-6 Loratadine 10 mg 06/04/24 09:00 06/05/24 08:34 Loratadine 10 Mg Tablet PO 10 mg DAILY LUDY Administration Melatonin 10 mg 06/03/24 21:35 Melatonin 5 Mg Tablet PO QHS PRN insomnia Multivitamins Therapeutic 1 tablet 06/04/24 09:00 06/05/24 08:34 Multivitamins Therapeutic Tab (*Bkc) PO 1 tablet DAILY LUDY Administration Trazodone HCl 50 mg 06/03/24 21:35 06/04/24 21:40 Trazodone Hcl 50 Mg Tablet PO 50 mg QHS LUDY Administration Radiology Results: ITS Impressions Head CT 06/03/24 14:59 IMPRESSION: 1. No fracture or acute intracranial process. 2. Age-related changes including mild to moderate diffuse volume loss and mild to moderate scattered white matter hypoattenuation consistent with chronic small vessel ischemic disease. Cervical Spine CT 06/03/24 15:04 IMPRESSION: 1. No fracture. 2. Severe cervical spondylosis. Hip/Pelvis X-Ray 06/03/24 15:57 IMPRESSION: 1. Subcapital fracture of left femoral neck. 2. Mild left hip osteoarthritis. Chest X-Ray 06/03/24 20:07 IMPRESSION: 1. Large hiatal hernia. Labs Labs: Laboratory Results - last 24 hr 06/04/24 06/05/24 17:23 06:24 WBC 6.0 RBC 3.48 L Hgb 10.6 L Hct 32.6 L MCV 93.7 MCH 30.5 MCHC 32.5 RDW 14.0 Plt Count 166 MPV 9.5 Sodium 134 L Potassium 3.8 Chloride 110 H Carbon Dioxide 25 Anion Gap -1 L BUN 11 Creatinine 0.60 L Estim Creat Clear Calc 65 Estimated GFR > 60 Glucose 90 Calcium 8.7 Magnesium 2.1 Blood Type O Positive Antibody Screen Negative
[2024-06-05 14:00] VITALS: BP 128/58; PULSE 83; RESP 16; TEMP 36.9; O2SAT 94
--- NOTE | 2024-06-05 15:06 | PM.IMPN ---
Progress Note: A&P Assessment and Plan (1) Hip fracture: Qualifiers: Encounter type: initial encounter Fracture type: closed Laterality: left Qualified Code(s): S72.002A - Fracture of unspecified part of neck of left femur, initial encounter for closed fracture Code(s): S72.009A - Fracture of unspecified part of neck of unspecified femur, initial encounter for closed fracture Status: Acute Assessment and Plan: Patient presents with hip pain after fall found to have left hip fracture. Fracture due to ground level fall with no preceding symptoms. Orthopedic surgery was consulted. Patient has Toradol and Dilaudid ordered as needed for pain. UA was clear. WBC was 12K but normal now so probably stress response. Klesey catheter was placed for urine management due to immobility. Plan for surgical replacement tomorrow (2) Depression: Qualifiers: Depression Type: persistent depressive disorder Qualified Code(s): F34.1 - Dysthymic disorder Code(s): F32.A - Depression, unspecified Status: Acute Assessment and Plan: Mood stable. Continue current meds (3) Acute hyponatremia: Code(s): E87.1 - Hypo-osmolality and hyponatremia Status: Acute Assessment and Plan: Patient had mild acute hyponatremia at 132 and she received 1 L normal saline bolus in the ER and was started on LR. Sodium better. IV fluids stopped. Sodium low but stable. Suspect related to SIADH from pain. Follow (4) QT prolongation: Code(s): R94.31 - Abnormal electrocardiogram [ECG] [EKG] Status: Acute Assessment and Plan: EKG showing NSR with LAFB and nonspecific ST and T wave changes. QTc 495. Celexa was held. Repeat EKG showing QTc 358 Mag 2.1 Resume celexa Plan DVT Prophylaxis - per surgery Code status - full Subjective Date/time seen: 06/05/24 15:06 Interval history: 74yo female with anxiety, depression, hiatal hernia and osteopenia here for hip pain after a fall. Pain about 3/10. Happy that she was able to eat. No CP or SOB. Surgrey scheduled for tomorrow. Exam Narrative: AF 98.5 128/58 83 16 94% ra Gen - NARD HEENT -NC/AT Chest - lungs clear anteriorlly. nml R CV - RRR S1/S2 Abd - Soft, NT/ND, Positive BS -Kelsey catheter secured draining clear yellow urine Ext - No pedal edema Psych - Nml mood and affect Skin - Warm and dry Objective Data Vital Signs Vital Signs: Vital Signs - 24 hr 06/04/24 20:00 06/04/24 21:30 06/05/24 06:00 Temperature 97.9 F 98.6 F Pulse Rate 87 78 Respiratory Rate 18 16 Blood Pressure 128/67 125/68 Pulse Oximetry 94 95 Oxygen Delivery Room Air 06/05/24 08:30 06/05/24 14:00 Temperature 98.5 F Pulse Rate 83 Respiratory Rate 16 Blood Pressure 128/58 L Pulse Oximetry 94 Oxygen Delivery Room Air Intake/Output Intake/Output: Intake & Output 06/02/24 06/03/24 06/04/24 06/05/24 23:59 23:59 23:59 23:59 Intake Total 1000 790 240 Output Total 1900 650 Balance 1000 1110 410 Meds/Results Medications: Active Medications Generic Name Dose Route Start Last Admin Trade Name Freq PRN Reason Stop Dose Admin Alprazolam 0.5 mg 06/03/24 21:35 06/04/24 21:40 Alprazolam (*Crx) 0.5 Mg Tablet PO 0.5 mg TID PRN Administration anxiety Bupropion HCl 100 mg 06/04/24 09:00 06/05/24 08:33 Bupropion Hcl Sr (12hr) 100 Mg Tabcr PO 100 mg QAM LUDY Administration Citalopram Hydrobromide 40 mg 06/04/24 09:00 Citalopram Hydrobromide 20 Mg Tablet PO DAILY LUDY Sodium Chloride 37.7 ml/ 0 ml 06/06/24 12:00 Morphine Sulfate 2 mg/ INFILTRATE 06/06/24 12:01 Ropivacaine 200 mg/ Ketorolac ONCE ONE Tromethamine 15 mg/ Epinephrine HCl 0.3 mg Hydromorphone HCl 0.5 mg 06/03/24 20:50 Hydromorphone Hcl Inj (*Crx) 1 Mg/Ml Syr IV PUSH Q4H PRN Pain Rated 7-10 Ketorolac Tromethamine 30 mg 06/03/24 20:50 06/05/24 05:15 Ketorolac 30 Mg/Ml Vial (*Bkc) IV PUSH 06/08/24 20:49 30 mg Q6H PRN Administration Pain Rated 4-6 Loratadine 10 mg 06/04/24 09:00 06/05/24 08:34 Loratadine 10 Mg Tablet PO 10 mg DAILY LUDY Administration Melatonin 10 mg 06/03/24 21:35 Melatonin 5 Mg Tablet PO QHS PRN insomnia Multivitamins Therapeutic 1 tablet 06/04/24 09:00 06/05/24 08:34 Multivitamins Therapeutic Tab (*Bkc) PO 1 tablet DAILY LUDY Administration Trazodone HCl 50 mg 06/03/24 21:35 06/04/24 21:40 Trazodone Hcl 50 Mg Tablet PO 50 mg QHS LUDY Administration Radiology Results: ITS Impressions Head CT 06/03/24 14:59 IMPRESSION: 1. No fracture or acute intracranial process. 2. Age-related changes including mild to moderate diffuse volume loss and mild to moderate scattered white matter hypoattenuation consistent with chronic small vessel ischemic disease. Cervical Spine CT 06/03/24 15:04 IMPRESSION: 1. No fracture. 2. Severe cervical spondylosis. Hip/Pelvis X-Ray 06/03/24 15:57 IMPRESSION: 1. Subcapital fracture of left femoral neck. 2. Mild left hip osteoarthritis. Chest X-Ray 06/03/24 20:07 IMPRESSION: 1. Large hiatal hernia. Labs Labs: Laboratory Results - last 24 hr 06/04/24 06/05/24 17:23 06:24 WBC 6.0 RBC 3.48 L Hgb 10.6 L Hct 32.6 L MCV 93.7 MCH 30.5 MCHC 32.5 RDW 14.0 Plt Count 166 MPV 9.5 Sodium 134 L Potassium 3.8 Chloride 110 H Carbon Dioxide 25 Anion Gap -1 L BUN 11 Creatinine 0.60 L Estim Creat Clear Calc 65 Estimated GFR > 60 Glucose 90 Calcium 8.7 Magnesium 2.1 Blood Type O Positive Antibody Screen Negative
[2024-06-05] MEDS: traZODone HCL 50 MG TABLET PO (20:17)
[2024-06-05] MEDS: MELATONIN 5 MG TABLET 10 MG PO (20:18)
[2024-06-05 21:04] VITALS: BP 114/52; PULSE 94; RESP 12; TEMP 36.5; O2SAT 95
[2024-06-06] VITALS (11 sets, daily range): BP systolic 90–145; BP diastolic 57–109; PULSE 68–101; RESP 11–18; TEMP 36–37; O2SAT 92–100
[2024-06-06] MEDS: ALPRAZolam (*CRX) 0.5 MG TABLET PO (00:18)
[2024-06-06] MEDS: KETOROLAC 30 MG/ML VIAL (*BKC) IV PUSH (06:41)
--- NOTE | 2024-06-06 07:22 | WPDHPUPDATE1 ---
History and Physical Update Update Date/Time: 06/06/24 07:22 History and Physical has been reviewed, including an updated exam of the patient. There are NO changes in the patient's condition. Risks, benefits, and alternatives have been discussed and questions answered. Patient agrees to proceed with procedure.
[2024-06-06] MEDS: CITALOPRAM HYDROBROMIDE 20 MG TABLET 40 MG PO (08:54)
[2024-06-06] MEDS: buPROPion HCL SR (12HR) 100 MG TABCR PO (08:54)
--- NOTE | 2024-06-06 12:31 | PM.IMPN ---
Progress Note: A&P Assessment and Plan (1) Hip fracture: Qualifiers: Encounter type: initial encounter Fracture type: closed Laterality: left Qualified Code(s): S72.002A - Fracture of unspecified part of neck of left femur, initial encounter for closed fracture Code(s): S72.009A - Fracture of unspecified part of neck of unspecified femur, initial encounter for closed fracture Status: Acute Assessment and Plan: Patient presents with hip pain after fall found to have left hip fracture. Fracture due to ground level fall with no preceding symptoms. Orthopedic surgery was consulted. Patient has Toradol and Dilaudid ordered as needed for pain. UA was clear. WBC was 12K but normal now so probably stress response. Kelsey catheter was placed for urine management due to immobility. Plan for surgical replacement later today (2) Depression: Qualifiers: Depression Type: persistent depressive disorder Qualified Code(s): F34.1 - Dysthymic disorder Code(s): F32.A - Depression, unspecified Status: Acute Assessment and Plan: Mood stable. Continue current meds (3) Acute hyponatremia: Code(s): E87.1 - Hypo-osmolality and hyponatremia Status: Acute Assessment and Plan: Patient had mild acute hyponatremia at 132 and she received 1 L normal saline bolus in the ER and was started on LR. Sodium better. IV fluids stopped. Sodium low but stable. Suspect related to SIADH from pain. Follow (4) QT prolongation: Code(s): R94.31 - Abnormal electrocardiogram [ECG] [EKG] Status: Acute Assessment and Plan: EKG showing NSR with LAFB and nonspecific ST and T wave changes. QTc 495. Celexa was held. Repeat EKG showing QTc 358 Mag 2.1 Resumed celexa Plan DVT Prophylaxis - per surgery Code status - full Subjective Date/time seen: 06/06/24 12:31 Interval history: 74yo female with anxiety, depression, hiatal hernia and osteopenia here for hip pain after a fall. No problems overnight. Pain tolerable. No CP or SOB. Surgery scheduled for today. Exam Narrative: AF 96.8 121/83 83 12 93% ra Gen - NARD Chest - lungs clear anteriorly CV - RRR S1/S2 Abd - Soft, NT/ND, Positive BS -Kelsey catheter secured draining clear yellow urine Ext - No pedal edema Psych - Nml mood and affect Skin - Warm and dry Objective Data Vital Signs Vital Signs: Vital Signs - 24 hr 06/05/24 14:00 06/05/24 21:04 06/06/24 06:00 Temperature 98.5 F 97.7 F 96.8 F L Pulse Rate 83 94 83 Respiratory Rate 16 12 12 Blood Pressure 128/58 L 114/52 L 121/83 Pulse Oximetry 94 95 93 Oxygen Delivery 06/06/24 08:50 Temperature Pulse Rate Respiratory Rate Blood Pressure Pulse Oximetry Oxygen Delivery Room Air Intake/Output Intake/Output: Intake & Output 06/03/24 06/04/24 06/05/24 06/06/24 23:59 23:59 23:59 23:59 Intake Total 0489 606 4108 0 Output Total 1900 1400 500 Balance 1000 -1110 -140 -500 Meds/Results Medications: Active Medications Generic Name Dose Route Start Last Admin Trade Name Freq PRN Reason Stop Dose Admin Alprazolam 0.5 mg 06/03/24 21:35 06/06/24 00:18 Alprazolam (*Crx) 0.5 Mg Tablet PO 0.5 mg TID PRN Administration anxiety Bupropion HCl 100 mg 06/04/24 09:00 06/06/24 08:54 Bupropion Hcl Sr (12hr) 100 Mg Tabcr PO 100 mg QAM LUDY Administration Citalopram Hydrobromide 40 mg 06/04/24 09:00 06/06/24 08:54 Citalopram Hydrobromide 20 Mg Tablet PO 40 mg DAILY LUDY Administration Fentanyl Citrate 25 mcg 06/06/24 10:51 Fentanyl Citrate Inj (*Crx) 100 Mcg/2 Ml Vial IV PUSH Q2M PRN Pain Hydromorphone HCl 0.5 mg 06/03/24 20:50 Hydromorphone Hcl Inj (*Crx) 1 Mg/Ml Syr IV PUSH Q4H PRN Pain Rated 7-10 Lactated Ringer's 1,000 mls @ 30 mls/hr 06/06/24 10:55 Lr - Lactated Ringers Iv IV CONT .Q24H LUDY Lactated Ringer's 1,000 mls @ 30 mls/hr 06/06/24 10:55 Lr - Lactated Ringers Iv IV CONT .Q24H [facility] Ketorolac Tromethamine 30 mg 06/03/24 20:50 06/06/24 06:41 Ketorolac 30 Mg/Ml Vial (*Bkc) IV PUSH 06/08/24 20:49 30 mg Q6H PRN Administration Pain Rated 4-6 Loratadine 10 mg 06/04/24 09:00 06/06/24 08:50 Loratadine 10 Mg Tablet PO Not Given DAILY LUDY Melatonin 10 mg 06/03/24 21:35 06/05/24 20:18 Melatonin 5 Mg Tablet PO 10 mg QHS PRN Administration insomnia Multivitamins Therapeutic 1 tablet 06/04/24 09:00 06/06/24 08:50 Multivitamins Therapeutic Tab (*Bkc) PO Not Given DAILY LUDY Trazodone HCl 50 mg 06/03/24 21:35 06/05/24 20:17 Trazodone Hcl 50 Mg Tablet PO 50 mg QHS LUDY Administration Radiology Results: ITS Impressions Head CT 06/03/24 14:59 IMPRESSION: 1. No fracture or acute intracranial process. 2. Age-related changes including mild to moderate diffuse volume loss and mild to moderate scattered white matter hypoattenuation consistent with chronic small vessel ischemic disease. Cervical Spine CT 06/03/24 15:04 IMPRESSION: 1. No fracture. 2. Severe cervical spondylosis. Hip/Pelvis X-Ray 06/03/24 15:57 IMPRESSION: 1. Subcapital fracture of left femoral neck. 2. Mild left hip osteoarthritis. Chest X-Ray 06/03/24 20:07 IMPRESSION: 1. Large hiatal hernia. Labs Labs: Laboratory Results - last 24 hr 06/04/24 06/05/24 17:23 06:24 WBC 6.0 RBC 3.48 L Hgb 10.6 L Hct 32.6 L MCV 93.7 MCH 30.5 MCHC 32.5 RDW 14.0 Plt Count 166 MPV 9.5 Sodium 134 L Potassium 3.8 Chloride 110 H Carbon Dioxide 25 Anion Gap -1 L BUN 11 Creatinine 0.60 L Estim Creat Clear Calc 65 Estimated GFR > 60 Glucose 90 Calcium 8.7 Magnesium 2.1 Blood Type O Positive Antibody Screen Negative
[2024-06-06] MEDS: KETOROLAC 15 MG/ML VIAL (*BKC) IV PUSH (13:00)
[2024-06-06] MEDS: TRANEXAMIC ACID 1,000MG/ISO100 1,000 MG/100 ML BAG 200 MG IVPB ×2 (13:00)
[2024-06-06] MEDS: LACTATED RINGERS 1,000 ML 30 ML IV CONT ×2 (13:00→16:12)
[2024-06-06] MEDS: ACETAMINOPHEN 500 MG TABLET 1000 MG PO (13:00)
--- NOTE | 2024-06-06 13:06 | P.PNAN_ITS ---
Anes - Initial Pre Proc Eval Procedure: Operation Date: 06/06/24 13:30 Proposed Procedures p Left Total Hip Arthroplasty - Shankar Malone MD Date/Time: 06/06/24 13:06 Surgeon: Amberly Webster DO Pre Op Diagnosis: Hip fracture Patient Data Age: 74 Gender: F Height: 1.68 m Weight: 68.3 kg Last Vital Signs Temp 36.0 C L 06/06/24 06:00 Pulse 83 06/06/24 06:00 Resp 12 06/06/24 06:00 BP 121/83 06/06/24 06:00 Pulse Ox 93 06/06/24 06:00 O2 Del Method Room Air 06/06/24 08:50 Allergies Allergy/AdvReac Type Severity Reaction Status Date / Time oxytetracycline Allergy Unknown Unknown Verified 06/03/24 21:10 Home Medications ?Medication ?Instructions ?Recorded ?Confirmed ?Type fexofenadine 180 mg tablet 180 mg PO DAILY 10/21/20 06/03/24 History (Toya Allergy) multivitamin 1 tablet PO DAILY 10/21/20 06/03/24 History melatonin 10 mg capsule 10 mg PO QHS PRN insomnia 04/27/21 06/03/24 History trazodone 50 mg tablet 50 mg PO QHS #90 tabs 12/07/23 06/03/24 Rx citalopram 40 mg tablet 40 mg PO DAILY #90 tabs 01/20/24 06/03/24 Rx bupropion HCl 100 mg tablet,12 hr 100 mg PO QAM #30 tabs 04/02/24 06/03/24 Rx sustained-release alprazolam 0.5 mg tablet 0.5 mg PO TID PRN anxiety #90 tabs 04/10/24 06/03/24 Rx Patient hx anesthesia problems: none Family hx anesthesia problems: none Results Review: All pre-operative results and documents have been reviewed as part of the pre- operative evaluation. [facility] Past Medical History Medical History Osteopenia DEXA scan 2022 demonstrated T-score-1.9 left hip Normal colonoscopy Hiatal hernia Anxiety Surgical History Surgical History Dental root implant present Lower jaw History of left knee replacement (03/2015) Dr. Shankar Malone Status post cataract extraction of both eyes with insertion of intraocular lens History of esophagogastroduodenoscopy (EGD) Family History Family History Other Family history of arthritis Hypertension Social History Social History Social History: She lives in [place] independent [facility]. She ambulates with a cane. To lifelong nonsmoker and denies alcohol use. She has a cat. Code status: Currently full code but she is unsure if she would actually want her wrote measures if her heart were to stop. She wants some time to consider her options. POA: Dontrell (step daughter), she has a living will Smoking status: Never smoker Second hand tobacco smoke exposure: No Alcohol intake: never Substance use: never Substance use type: does not use Do You Feel Safe in your Home?: No Lack of Transportation: No Lack of Food: Never True Current Housing: I Have Housing Concerned About Future Housing: No Difficulty Paying Gas/Electric Bills: No Difficulty Paying for Meds: No Currently Unemployed: No Education: Bachelor's Degree Difficulty w/ Childcare or Family Care: No Living arrangements: [facility] Additional living arrangements comments: [place] independently. She has a cat. Occupation/Education: retired Gender identity (if verbalized by the patient): Female Spiritual care concerns: No Agree to blood products: Yes Anes - Eval Final PreProcedure Day of Procedure 06/06/24 13:06 Patient weight: normal Heart: regular rate and rhythm Lungs: clear to auscultation Airway: Mallampati scale class 1 Neurological: alert and oriented Last oral intake: >/= 8 hours ASA classification: III Emergent: no Anesthetic plan: proceed Anesthesia type and monitoring: general ETT and standard monitoring Results Review: All pre-operative results and documents have been reviewed as part of the pre- operative evaluation. Informed Consent: The patient's anesthetic plan and its attendant risks and benefits were discussed with the patient/family/POA. Questions were solicited and answers provided to the satisfaction of the patient/family/POA.
[2024-06-06] MEDS: ceFAZolin 2 GM/D5W 50 ML 2 GM/50 ML BAG IVPB ×2 (13:32→20:26)
[2024-06-06] MEDS: SODIUM CHLORIDE 0.9% IV 37.7 ML, MORPHINE SULFATE INJ (*CRX) 2 MG, ROPivacaine HCL 1% 2... INFILTRATE (14:32)
[2024-06-06] MEDS: TRANEXAMIC ACID 1,000 MG/10 ML AMPUL 1000 MG IV PUSH (16:01)
--- NOTE | 2024-06-06 16:47 | W.PM.PROC2 ---
Procedure Note - Detailed Date of Procedure 06/06/24 Pre-op Diagnosis LEFT FEMORAL NECK FRACTURE Post-op Diagnosis Same Procedure Performed L ROBERTO Surgeon hSankar Malone MD Anesthesia General Description of Procedure THE PATIENT WAS TAKEN TO THE OPERATING ROOM IN STABLE CONDITION AND WAS PLACED IN THE LATERAL DECUBITUS AND THE LEFT LOWER EXTREMITY WAS PREPPED AND DRAPED IN THE STERILE FASHION. INCISION WAS MADE IN THE POSTERIOR LATERAL SIDE OF THE HIP, DOWN TO THE FASCIA LAYER. THE FASCIA WAS INCISED. THE HIP WAS EXPOSED. THE SHORT EXTERNAL ROTATORS WERE EXPOSED. THE SCIATIC NERVE WAS IDENTIFIED. INCISION WAS MADE THROUGH THE SHORT EXTERNAL ROTATORS AND THE CAPSULE OF THE HIP JOINT. FRESH HEMATOMA WAS COMING FROM THE FRACTURE SIGHT. AN OSTEOTOMY WAS MADE TO THE FEMORAL NECK ABOUT 1 CM PROXIMAL TO THE LESSER TROCHANTER. THE FEMORAL HEAD MEASURED 47 MM. THE ACETABULUM WAS EXPOSED. BEGINNING WITH A 44 REAMER THE ACETABULUM WAS REAMED TO 49 MM. A 50 MM TRIAL WAS PLACED IN 35 DEG OF ABDUCTION AND ANTEVERSION WAS IN ALIGNMENT WITH THE TRANS ACETABULAR LIGAMENT. THE FIT WAS EXCELLENT. THE TRIAL WAS REMOVED. A 50 MM BIOMET G7 COMPONENT WAS THEN TAPPED IN TO PLACE IN 35 DEG OF ABDUCTION AND ANTEVERSION IN ALIGNMENT WITH THE TRANSVERSE ACETABULAR LIGAMENT. THE FIT WAS EXCELLENT. 2 SCREWS WERE PLACED FOR STABILITY AND THE HAD EXCELLENT BITES. THE ACETABULAR LINER WAS PLACED AND CHECKED FOR STABILITY. NEXT THE FEMUR WAS PREPARED WITH INITIAL CANAL FINDER THEN SEQUENTIAL BROACHING WITH A TAPERLOC HIP SYSTEM, UNTIL A 9 BROACH FIT WELL IN 15 OF ANTEVERSION. A +6 STANDARD OFFSET NECK WITH 36 MM HEAD TRIAL WAS PLACED. THE SHUCK TEST WAS EXCELLENT AND THE STABILITY IN FLEXION AND ROTATION WAS EXCELLENT. LEG LENGTHS WERE GROSSLY EQUAL. TRIALS WERE REMOVED. A BIOMET TAPERLOC 9 STEM WAS PLACED WITH A HIGH OFFSET NECK THE FIT WAS EXCELLENT IN 15 DEG OF ANTEVERSION. A +6 CERAMIC 36 MM FEMORAL CERAMIC HEAD WAS PLACED. THE HIP WAS TRIALED AND THE STABILITY WAS EXCELLENT WERE THE LEG LENGTHS AND THE SHUCK TEST. THE WOUND WAS IRRIGATED WITH STERILE BETADINE AND WATER FOR 3 MIN. THEN WASHED AGAIN. THE CAPSULE AND THE EXTERNAL ROTATORS WERE APPROXIMATED WITH NUMBER 1 VICRYL. THE FASCIA WITH No 2 QUIL AND THE SUB CUTANEOUS LAYER WITH 2-0 ABSORBABLE SUTURE WITH A RUNNING 3-0 SUBCUTICULAR LAYER WELL. DERMABOND WAS PLACED AND STERILE DRESSING WAS APPLIED. PATIENT WAS PLACED BACK ON TO THE SUPINE POSITION AND WAS EXTUBATED Estimated Blood Loss 100 Complications No immediate complications Condition Stable Disposition PACU
[2024-06-06] MEDS: fentaNYL CITRATE INJ (*CRX) 100 MCG/2 ML VIAL 25 MCG IV PUSH ×2 (16:54→16:56)
[2024-06-06] MEDS: traZODone HCL 50 MG TABLET PO (20:25)
[2024-06-06] MEDS: FAMOTIDINE 20 MG TABLET PO (20:26)
[2024-06-06] MEDS: SODIUM CHLORIDE 0.9% IV 1,000 ML 125 ML IV CONT (20:26)
[2024-06-06] MEDS: ASPIRIN 325 MG ENTERIC TABLET PO (20:26)
[2024-06-06] MEDS: diphenhydrAMINE HCl INJ 50 MG/ML VIAL 25 MG IV PUSH (20:27)
[2024-06-07 03:16] VITALS: BP 107/61; PULSE 78; RESP 12; TEMP 37; O2SAT 93
[2024-06-07] MEDS: SODIUM CHLORIDE 0.9% IV 1,000 ML 125 ML IV CONT (05:01)
[2024-06-07] MEDS: ceFAZolin 2 GM/D5W 50 ML 2 GM/50 ML BAG IVPB ×2 (05:01→12:24)
[2024-06-07 06:36] LABS: Basophils Percent Auto 0.1 % (0.2-1.2); Eosinophils Percent Auto 0.4 % (0-4.4); Hematocrit 24.5 % (37.0-47.0); Immature Granulocyte Absolute 0.02 K/mm3 (0.00-0.031); Immature Granulocyte Percent A 0.3 % (0-0.5); Lymphocytes Absolute Auto 0.67 K/mm3 (0.9-3.2); Lymphocytes Percent Auto 9.1 % (18.3-44.2); Mean Corpuscular HGB Conc 32.7 g/dl (32-36); Mean Corpuscular Hemoglobin 30.7 pg (26-34); Mean Corpuscular Volume 93.9 fl (80-100); Mean Platelet Volume 9.7 fl (7.4-10.4); Monocytes Absolute Auto 0.9 K/mm3 (0.1-0.6); Monocytes Percent Auto 11.5 % (2.6-8.5); Neutrophils Absolute Auto 5.8 K/mm3 (1.3-6.7); Neutrophils Percent Auto 78.6 % (45.5-73.1); Platelet Count Result 155 k/mm3 (150-375); Red Blood Count 2.61 M/mm3 (4.2-5.4); Red Cell Distribution Width 13.8 % (11.5-14.5); White Blood Count 7.4 K/mm3 (4.5-10.0)
[2024-06-07 06:38] LABS: Anion Gap 3 mmol/L (4-12); Blood Urea Nitrogen 12 mg/dL (7-17); Calcium 7.7 mg/dL (8.4-10.2); Carbon Dioxide 24 mmol/L (22-30); Chloride 108 mmol/L (98-107); Estimated CRCL calculation 65 ml/min; Estimated Glomerular Filt Rate > 60; Glucose 96 mg/dL (65-110); Potassium 3.6 mmol/L (3.4-5.0); Sodium 135 mmol/L (137-145)
[2024-06-07] MEDS: CITALOPRAM HYDROBROMIDE 20 MG TABLET 40 MG PO (08:15)
[2024-06-07] MEDS: SENNA/DOCUSATE SODIUM TABLET 2 TAB PO ×2 (08:15→16:36)
[2024-06-07] MEDS: FAMOTIDINE 20 MG TABLET PO ×2 (08:15→20:39)
[2024-06-07] MEDS: buPROPion HCL SR (12HR) 100 MG TABCR PO (08:15)
[2024-06-07] MEDS: MULTIVITAMINS THERAPEUTIC TAB (*BKC) 1 TABLET PO (08:15)
[2024-06-07] MEDS: ASPIRIN 325 MG ENTERIC TABLET PO ×2 (08:15→20:39)
[2024-06-07] MEDS: LORATADINE 10 MG TABLET PO (08:15)
[2024-06-07] MEDS: polyethylene glycoL 3350 17 GM POWD.PACK PO (08:15)
[2024-06-07 08:22] VITALS: BP 104/55
--- NOTE | 2024-06-07 13:35 | P.PNIM_ITS ---
Progress Note: A&P Assessment and Plan (1) Hip fracture: Qualifiers: Encounter type: initial encounter Fracture type: closed Laterality: left Qualified Code(s): S72.002A - Fracture of unspecified part of neck of left femur, initial encounter for closed fracture Code(s): S72.009A - Fracture of unspecified part of neck of unspecified femur, initial encounter for closed fracture Status: Acute Assessment and Plan: Patient presents with hip pain after fall found to have left hip fracture. Fracture due to ground level fall with no preceding symptoms. Orthopedic surgery was consulted. Patient has Toradol and Dilaudid ordered as needed for pain. UA was clear. WBC was 12K but normal now so probably stress response. Kelsey catheter was placed for urine management due to immobility but since removed POD#1 from left ROBERTO. Continue PT/OT. (2) Depression: Qualifiers: Depression Type: persistent depressive disorder Qualified Code(s): F34.1 - Dysthymic disorder Code(s): F32.A - Depression, unspecified Status: Acute Assessment and Plan: Mood stable. Continue current meds (3) Acute hyponatremia: Code(s): E87.1 - Hypo-osmolality and hyponatremia Status: Acute Assessment and Plan: Patient had mild acute hyponatremia at 132 and she received 1 L normal saline bolus in the ER and was started on LR. Sodium better. IV fluids stopped. Sodium low but stable. Suspect related to SIADH from pain. Follow (4) QT prolongation: Code(s): R94.31 - Abnormal electrocardiogram [ECG] [EKG] Status: Acute Assessment and Plan: EKG showing NSR with LAFB and nonspecific ST and T wave changes. QTc 495. Celexa was held. Repeat EKG showing QTc 358 Mag 2.1 Resumed celexa Plan Anemia - Hgb dropped to 8 related to surgery and IV fluids. IV fluids off now. She is eating. EBL 100mL. Follow Eye symptoms- complains of right eye feeling 'tired' but appears to be long standing. Some findings on ecxam but again appears to be chronic. Recommend that she follow up with her general cargo clerk. Follow clinically for now. DVT Prophylaxis - per surgery Code status - full Subjective Date/time seen: 06/07/24 13:35 Interval history: 74yo female with anxiety, depression, hiatal hernia and osteopenia here for hip pain after a fall. Pain controlled. Kelsey out and voiding. Walking with therapy out to the halls. No CP or SOB. Complains of right eye feeling 'tired' at times with lid gets heavy and feels scratchy. Denies amaurosis fugax. She does have diplopia with lateral vision but states this is chronic for the past 3 years. No blurry vision. No headaches. Exam Narrative: AF 98.0 110/60 96 18 98% ra Gen - NARD HEENT - right occipital small hematoma with ecchymosis noted occipital region tracjking right post auricular area. PERRL, EOMI except for right eye deviation with upper medial gaze. Chest - CTA bilaterally, nml RR CV - RRR S1/S2 Abd - Soft, NT/ND, Positive BS Ext - No pedal edema. Dressing is clean and dry Neuro - no focal weakness Psych - Nml mood and affect Skin - Warm and dry Objective Data Vital Signs Vital Signs: Vital Signs - 24 hr 06/06/24 16:12 06/06/24 16:27 06/06/24 16:40 Temperature 97.1 F L Pulse Rate 85 93 73 Respiratory Rate 14 16 11 L Blood Pressure 127/109 H 134/90 145/57 H Pulse Oximetry 99 100 100 Oxygen Delivery Simple Face Mask Simple Face Mask Room Air Oxygen Flow Rate 8 8 06/06/24 16:55 06/06/24 17:10 06/06/24 17:31 Temperature 98.1 F Pulse Rate 74 73 68 Respiratory Rate 18 14 18 Blood Pressure 142/58 H 134/63 121/58 L Pulse Oximetry 94 94 100 Oxygen Delivery Room Air Room Air Oxygen Flow Rate 06/06/24 17:46 06/06/24 21:35 06/06/24 21:42 Temperature 98.2 F 98.4 F 98.6 F Pulse Rate 98 80 101 H Respiratory Rate 18 12 14 Blood Pressure 121/58 L 98/67 L 90/59 L Pulse Oximetry 100 92 96 Oxygen Delivery Oxygen Flow Rate 06/07/24 03:16 06/07/24 08:22 06/07/24 08:26 Temperature 98.6 F Pulse Rate 78 Respiratory Rate 12 Blood Pressure 107/61 104/55 L Pulse Oximetry 93 Oxygen Delivery Room Air Oxygen Flow Rate 06/07/24 09:02 Temperature Pulse Rate Respiratory Rate Blood Pressure Pulse Oximetry Oxygen Delivery Room Air Oxygen Flow Rate Intake/Output Intake/Output: Intake & Output 06/04/24 06/05/24 06/06/24 06/07/24 23:59 23:59 23:59 23:59 Intake Total 790 0341 342 6285 Output Total 1900 1400 801 300 Balance -1110 -530 845 4310 Meds/Results Medications: Active Medications Generic Name Dose Route Start Last Admin Trade Name Freq PRN Reason Stop Dose Admin Acetaminophen 500 mg 06/06/24 17:30 Acetaminophen 500 Mg Tablet PO Q6H PRN Pain Rated 1-3 Alprazolam 0.5 mg 06/03/24 21:35 06/06/24 00:18 Alprazolam (*Crx) 0.5 Mg Tablet PO 0.5 mg TID PRN Administration anxiety Aspirin 325 mg 06/06/24 21:00 06/07/24 08:15 Aspirin 325 Mg Enteric Tablet PO 325 mg Q12HR LUDY Administration Bupropion HCl 100 mg 06/04/24 09:00 06/07/24 08:15 Bupropion Hcl Sr (12hr) 100 Mg Tabcr PO 100 mg QAM LUDY Administration Citalopram Hydrobromide 40 mg 06/04/24 09:00 06/07/24 08:15 Citalopram Hydrobromide 20 Mg Tablet PO 40 mg DAILY LUDY Administration Diazepam 5 mg 06/06/24 17:30 Diazepam (*Crx) 5 Mg Tablet PO Q6H PRN Anxiety/Muscle Spasm Diphenhydramine HCl 25 mg 06/06/24 17:30 06/06/24 20:27 Diphenhydramine Hcl Inj 50 Mg/Ml Vial IV PUSH 25 mg Q6H PRN Administration Itching Famotidine 20 mg 06/06/24 21:00 06/07/24 08:15 Famotidine 20 Mg Tablet PO 20 mg Q12HR LUDY Administration Hydromorphone HCl 1 mg 06/06/24 17:30 Hydromorphone Hcl Inj (*Crx) 1 Mg/Ml Syr IV PUSH Q2H PRN Breakthrough Pain Rated 7-10 or NPO Hydromorphone HCl 0.5 mg 06/06/24 17:30 Hydromorphone Hcl Inj (*Crx) 1 Mg/Ml Syr IV PUSH Q2H PRN Breakthrough Pain Rated 4-6 or NPO Ibuprofen 800 mg in 200 mls @ 400 mls/hr 06/06/24 17:30 Caldolor 800 Mg/200 Ml IVPB Q6H PRN Breakthrough Pain Rated 1-3 or NPO Loratadine 10 mg 06/04/24 09:00 06/07/24 08:15 Loratadine 10 Mg Tablet PO 10 mg DAILY LUDY Administration Melatonin 10 mg 06/03/24 21:35 06/05/24 20:18 Melatonin 5 Mg Tablet PO 10 mg QHS PRN Administration insomnia Multivitamins Therapeutic 1 tablet 06/04/24 09:00 06/07/24 08:15 Multivitamins Therapeutic Tab (*Bkc) PO 1 tablet DAILY LUDY Administration Naloxone HCl 0.1 mg 06/06/24 17:30 Naloxone Hcl 0.4 Mg/Ml Vial IV PUSH Q2M PRN Opiate Reversal Ondansetron HCl 4 mg 06/06/24 17:30 Ondansetron Inj 4 Mg/2 Ml Vial IV PUSH Q4H PRN Nausea And Vomiting Oxycodone/Acetaminophen 1 tablet 06/06/24 17:30 Oxycodone/Acetaminophen (*Crx) 5-325 Mg Tablet PO Q4H PRN Pain Rated 4-6 Oxycodone/Acetaminophen 1 tab 06/06/24 17:30 Oxycodone/Acetaminophen (*Crx) 10-325 Mg Tablet PO Q6H PRN Pain Rated 7-10 Polyethylene Glycol 17 gm 06/07/24 09:00 06/07/24 08:15 Polyethylene Glycol 3350 17 Gm Powd.Pack PO 17 gm QAM LUDY Administration Senna/Docusate Sodium 2 tab 06/07/24 09:00 06/07/24 08:15 Senna/Docusate Sodium Tablet PO 2 tab BID LUDY Administration Trazodone HCl 50 mg 06/03/24 21:35 06/06/24 20:25 Trazodone Hcl 50 Mg Tablet PO 50 mg QHS LUDY Administration Radiology Results: ITS Impressions Head CT 06/03/24 14:59 IMPRESSION: 1. No fracture or acute intracranial process. 2. Age-related changes including mild to moderate diffuse volume loss and mild to moderate scattered white matter hypoattenuation consistent with chronic small vessel ischemic disease. Cervical Spine CT 06/03/24 15:04 IMPRESSION: 1. No fracture. 2. Severe cervical spondylosis. Hip/Pelvis X-Ray 06/03/24 15:57 IMPRESSION: 1. Subcapital fracture of left femoral neck. 2. Mild left hip osteoarthritis. Chest X-Ray 06/03/24 20:07 IMPRESSION: 1. Large hiatal hernia. Hip X-Ray 06/06/24 16:33 IMPRESSION: 1. Total left hip arthroplasty in near-anatomic alignment. Labs Labs: Laboratory Results - last 24 hr 06/07/24 06:02 WBC 7.4 RBC 2.61 L Hgb 8.0 L Hct 24.5 L MCV 93.9 MCH 30.7 MCHC 32.7 RDW 13.8 Plt Count 155 MPV 9.7 Immature Gran % (Auto) 0.3 Neut % (Auto) 78.6 H Lymph % (Auto) 9.1 L [place] % (Auto) 11.5 H Eos % (Auto) 0.4 Baso % (Auto) 0.1 L Lymph # (Auto) 0.67 L [place] # (Auto) 0.9 H Eos # (Auto) 0.0 Baso # (Auto) 0.0 Abs Immat Gran (auto) 0.02 Absolute Neuts (auto) 5.8 Absolute Nucleated RBC 0.000 Nucleated RBC % 0.0 Sodium 135 L Potassium 3.6 Chloride 108 H Carbon Dioxide 24 Anion Gap 3 L BUN 12 Creatinine 0.60 L Estim Creat Clear Calc 65 Estimated GFR > 60 Glucose 96 Calcium 7.7 L
[2024-06-07 14:00] VITALS: BP 95/43; PULSE 96; RESP 18; TEMP 36.7; O2SAT 98
[2024-06-07] MEDS: ARTIFICIAL TEARS OPHTH SOLN 15 ML BOTTLE 1 DROP EACH EYE (14:22)
[2024-06-07] MEDS: ACETAMINOPHEN 500 MG TABLET PO (14:59)
[2024-06-07 15:10] VITALS: BP 110/60
[2024-06-07] MEDS: traZODone HCL 50 MG TABLET PO (20:39)
[2024-06-07] MEDS: ALPRAZolam (*CRX) 0.5 MG TABLET PO (20:39)
[2024-06-07] MEDS: oxyCODONE/ACETAMINOPHEN (*CRX) 5-325 MG TABLET 1 TABLET PO (20:43)
[2024-06-07 21:07] VITALS: BP 99/46; PULSE 103; RESP 12; TEMP 36.6; O2SAT 96
[2024-06-08] MEDS: oxyCODONE/ACETAMINOPHEN (*CRX) 5-325 MG TABLET 1 TABLET PO ×3 (04:25→21:27)
[2024-06-08 05:34] VITALS: BP 122/57; PULSE 119; RESP 12; TEMP 36.4; O2SAT 96
[2024-06-08 06:38] LABS: Hemoglobin 9.1 g/dL (12.0-15.0); Mean Corpuscular HGB Conc 32.5 g/dl (32-36); Mean Corpuscular Hemoglobin 30.6 pg (26-34); Mean Corpuscular Volume 94.3 fl (80-100); Mean Platelet Volume 9.6 fl (7.4-10.4); Platelet Count Result 220 k/mm3 (150-375); Red Blood Count 2.97 M/mm3 (4.2-5.4); Red Cell Distribution Width 13.9 % (11.5-14.5); White Blood Count 6.9 K/mm3 (4.5-10.0)
[2024-06-08] MEDS: MULTIVITAMINS THERAPEUTIC TAB (*BKC) 1 TABLET PO (08:00)
[2024-06-08] MEDS: SENNA/DOCUSATE SODIUM TABLET 2 TAB PO (08:00)
[2024-06-08] MEDS: LORATADINE 10 MG TABLET PO (08:00)
[2024-06-08] MEDS: ASPIRIN 325 MG ENTERIC TABLET PO ×2 (08:01→21:26)
[2024-06-08] MEDS: buPROPion HCL SR (12HR) 100 MG TABCR PO (08:01)
[2024-06-08] MEDS: FAMOTIDINE 20 MG TABLET PO ×2 (08:01→21:27)
[2024-06-08] MEDS: CITALOPRAM HYDROBROMIDE 20 MG TABLET 40 MG PO (08:01)
[2024-06-08] MEDS: ARTIFICIAL TEARS OPHTH SOLN 15 ML BOTTLE 1 DROP EACH EYE (12:19)
[2024-06-08] MEDS: ACETAMINOPHEN 500 MG TABLET PO (12:22)
[2024-06-08 14:00] VITALS: BP 110/58; PULSE 96; RESP 16; TEMP 36.8; O2SAT 97
--- NOTE | 2024-06-08 14:33 | PM.IMPN ---
Progress Note: A&P Assessment and Plan (1) Hip fracture: Qualifiers: Encounter type: initial encounter Fracture type: closed Laterality: left Qualified Code(s): S72.002A - Fracture of unspecified part of neck of left femur, initial encounter for closed fracture Code(s): S72.009A - Fracture of unspecified part of neck of unspecified femur, initial encounter for closed fracture Status: Acute Assessment and Plan: Patient presents with hip pain after fall found to have left hip fracture. Fracture due to ground level fall with no preceding symptoms. Orthopedic surgery was consulted. Patient has Toradol and Dilaudid ordered as needed for pain. UA was clear. WBC was 12K but normal now so probably stress response. Kelsey catheter was placed for urine management due to immobility but since removed POD#2 from left ROBERTO. Continue PT/OT. (2) Depression: Qualifiers: Depression Type: persistent depressive disorder Qualified Code(s): F34.1 - Dysthymic disorder Code(s): F32.A - Depression, unspecified Status: Acute Assessment and Plan: Mood stable. Continue current meds (3) Acute hyponatremia: Code(s): E87.1 - Hypo-osmolality and hyponatremia Status: Acute Assessment and Plan: Patient had mild acute hyponatremia at 132 and she received 1 L normal saline bolus in the ER and was started on LR. Sodium better. IV fluids stopped. Sodium low but stable. Suspect related to SIADH from pain. Follow periordically (4) QT prolongation: Code(s): R94.31 - Abnormal electrocardiogram [ECG] [EKG] Status: Acute Assessment and Plan: EKG showing NSR with LAFB and nonspecific ST and T wave changes. QTc 495. Celexa was held. Repeat EKG showing QTc 358 Mag 2.1 Resumed celexa Plan Anemia - Hgb dropped to 8 related to surgery and IV fluids. IV fluids off now. She is eating. EBL 100mL. Repeat Hgb stable. Follow Eye symptoms- complains of right eye feeling 'tired' but appears to be long standing. Some findings on exam but again appears to be chronic. Recommend that she follow up with her senior training and development rep. Symptoms better with Refresh eye drops. Follow clinically for now. Disp - can be discharged from medical standpoint at any time DVT Prophylaxis - per surgery Code status - full Subjective Date/time seen: 06/08/24 14:34 Interval history: 74yo female with anxiety, depression, hiatal hernia and osteopenia here for hip pain after a fall. Having loose stools. Slept well. Pain controlled. Eye drops have helped and denies diplopia or any further eye symptoms. Walking to the BR with walker. Exam Narrative: AF 97.6 122/57 116 12 96% ra Gen - NARD Chest - CTA bilaterally, nml RR CV - RRR S1/S2 Abd - Soft, NT/ND, Positive BS Ext - No pedal edema. Dressing is clean and dry Psych - Nml mood and affect Skin - Warm and dry Objective Data Vital Signs Vital Signs: Vital Signs - 24 hr 06/07/24 15:10 06/07/24 20:00 06/07/24 21:07 Temperature 97.8 F Pulse Rate 103 H Respiratory Rate 12 Blood Pressure 110/60 99/46 L Pulse Oximetry 96 Oxygen Delivery Room Air 06/08/24 05:34 Temperature 97.6 F Pulse Rate 119 H Respiratory Rate 12 Blood Pressure 122/57 L Pulse Oximetry 96 Oxygen Delivery Intake/Output Intake/Output: Intake & Output 06/05/24 06/06/24 06/07/24 06/08/24 23:59 23:59 23:59 23:59 Intake Total 3279 868 2579 245 Output Total 1400 801 300 Balance -703 541 1021 245 Meds/Results Medications: Active Medications Generic Name Dose Route Start Last Admin Trade Name Freq PRN Reason Stop Dose Admin Acetaminophen 500 mg 06/06/24 17:30 06/08/24 12:22 Acetaminophen 500 Mg Tablet PO 500 mg Q6H PRN Administration Pain Rated 1-3 Alprazolam 0.5 mg 06/03/24 21:35 06/07/24 20:39 Alprazolam (*Crx) 0.5 Mg Tablet PO 0.5 mg TID PRN Administration anxiety Artificial Tears 1 drop 06/07/24 13:34 06/08/24 12:19 Artificial Tears Ophth Soln 15 Ml Bottle EACH EYE 1 drop QID PRN Administration Dry Eye(s) Aspirin 325 mg 06/06/24 21:00 06/08/24 08:01 Aspirin 325 Mg Enteric Tablet PO 325 mg Q12HR LUDY Administration Bupropion HCl 100 mg 06/04/24 09:00 06/08/24 08:01 Bupropion Hcl Sr (12hr) 100 Mg Tabcr PO 100 mg QAM LUDY Administration Citalopram Hydrobromide 40 mg 06/04/24 09:00 06/08/24 08:01 Citalopram Hydrobromide 20 Mg Tablet PO 40 mg DAILY LUDY Administration Diazepam 5 mg 06/06/24 17:30 Diazepam (*Crx) 5 Mg Tablet PO Q6H PRN Anxiety/Muscle Spasm Diphenhydramine HCl 25 mg 06/06/24 17:30 06/06/24 20:27 Diphenhydramine Hcl Inj 50 Mg/Ml Vial IV PUSH 25 mg Q6H PRN Administration Itching Famotidine 20 mg 06/06/24 21:00 06/08/24 08:01 Famotidine 20 Mg Tablet PO 20 mg Q12HR LUDY Administration Hydromorphone HCl 1 mg 06/06/24 17:30 Hydromorphone Hcl Inj (*Crx) 1 Mg/Ml Syr IV PUSH Q2H PRN Breakthrough Pain Rated 7-10 or NPO Hydromorphone HCl 0.5 mg 06/06/24 17:30 Hydromorphone Hcl Inj (*Crx) 1 Mg/Ml Syr IV PUSH Q2H PRN Breakthrough Pain Rated 4-6 or NPO Ibuprofen 800 mg in 200 mls @ 400 mls/hr 06/06/24 17:30 Caldolor 800 Mg/200 Ml IVPB Q6H PRN Breakthrough Pain Rated 1-3 or NPO Loratadine 10 mg 06/04/24 09:00 06/08/24 08:00 Loratadine 10 Mg Tablet PO 10 mg DAILY LUDY Administration Melatonin 10 mg 06/03/24 21:35 06/05/24 20:18 Melatonin 5 Mg Tablet PO 10 mg QHS PRN Administration insomnia Multivitamins Therapeutic 1 tablet 06/04/24 09:00 06/08/24 08:00 Multivitamins Therapeutic Tab (*Bkc) PO 1 tablet DAILY LUDY Administration Naloxone HCl 0.1 mg 06/06/24 17:30 Naloxone Hcl 0.4 Mg/Ml Vial IV PUSH Q2M PRN Opiate Reversal Ondansetron HCl 4 mg 06/06/24 17:30 Ondansetron Inj 4 Mg/2 Ml Vial IV PUSH Q4H PRN Nausea And Vomiting Oxycodone/Acetaminophen 1 tablet 06/06/24 17:30 06/08/24 08:04 Oxycodone/Acetaminophen (*Crx) 5-325 Mg Tablet PO 1 tablet Q4H PRN Administration Pain Rated 4-6 Oxycodone/Acetaminophen 1 tab 06/06/24 17:30 Oxycodone/Acetaminophen (*Crx) 10-325 Mg Tablet PO Q6H PRN Pain Rated 7-10 Polyethylene Glycol 17 gm 06/07/24 09:00 06/08/24 07:58 Polyethylene Glycol 3350 17 Gm Powd.Pack PO Not Given QAM LUDY Senna/Docusate Sodium 2 tab 06/07/24 09:00 06/08/24 08:00 Senna/Docusate Sodium Tablet PO 2 tab BID LUDY Administration Trazodone HCl 50 mg 06/03/24 21:35 06/07/24 20:39 Trazodone Hcl 50 Mg Tablet PO 50 mg QHS LUDY Administration Radiology Results: ITS Impressions Head CT 06/03/24 14:59 IMPRESSION: 1. No fracture or acute intracranial process. 2. Age-related changes including mild to moderate diffuse volume loss and mild to moderate scattered white matter hypoattenuation consistent with chronic small vessel ischemic disease. Cervical Spine CT 06/03/24 15:04 IMPRESSION: 1. No fracture. 2. Severe cervical spondylosis. Hip/Pelvis X-Ray 06/03/24 15:57 IMPRESSION: 1. Subcapital fracture of left femoral neck. 2. Mild left hip osteoarthritis. Chest X-Ray 06/03/24 20:07 IMPRESSION: 1. Large hiatal hernia. Hip X-Ray 06/06/24 16:33 IMPRESSION: 1. Total left hip arthroplasty in near-anatomic alignment. Labs Labs: Laboratory Results - last 24 hr 06/08/24 06:08 WBC 6.9 RBC 2.97 L Hgb 9.1 L Hct 28.0 L MCV 94.3 MCH 30.6 MCHC 32.5 RDW 13.9 Plt Count 220 MPV 9.6
[2024-06-08 21:25] VITALS: BP 130/68; PULSE 120; RESP 20; TEMP 36.7; O2SAT 98
[2024-06-08] MEDS: MELATONIN 5 MG TABLET 10 MG PO (21:26)
[2024-06-08] MEDS: traZODone HCL 50 MG TABLET PO (21:27)
[2024-06-09] MEDS: oxyCODONE/ACETAMINOPHEN (*CRX) 5-325 MG TABLET 1 TABLET PO (05:30)
[2024-06-09 05:56] VITALS: BP 121/64; PULSE 90; RESP 18; TEMP 36.6; O2SAT 97
[2024-06-09] MEDS: LORATADINE 10 MG TABLET PO (09:05)
[2024-06-09] MEDS: ASPIRIN 325 MG ENTERIC TABLET PO (09:05)
[2024-06-09] MEDS: SENNA/DOCUSATE SODIUM TABLET 2 TAB PO ×2 (09:05→18:01)
[2024-06-09] MEDS: CITALOPRAM HYDROBROMIDE 20 MG TABLET 40 MG PO (09:05)
[2024-06-09] MEDS: FAMOTIDINE 20 MG TABLET PO (09:05)
[2024-06-09] MEDS: MULTIVITAMINS THERAPEUTIC TAB (*BKC) 1 TABLET PO (09:05)
[2024-06-09] MEDS: buPROPion HCL SR (12HR) 100 MG TABCR PO (09:05)
[2024-06-09] MEDS: ALPRAZolam (*CRX) 0.5 MG TABLET PO ×2 (09:09→16:41)
--- NOTE | 2024-06-09 12:25 | PM.PNORT ---
Progress Note: A&P Assessment and Plan (1) S/P total hip arthroplasty: Qualifiers: Laterality: left Qualified Code(s): Z96.642 - Presence of left artificial hip joint Code(s): Z96.649 - Presence of unspecified artificial hip joint Status: Acute Assessment and Plan: POD #3: Left ROBERTO Continue PT/OT. WBAT. Walker. HIGH FALL RISK. Continue pain control. Ice Hip. Protect skin. DVT prophylaxis with Aspirin. SCDs. Incentive Spirometry Use reviewed. Monitor Dressing. Change prior to discharge. Bowel Regimen. Dispo: SNF pending progress with PT/OT Follow up scheduled. Subjective Subjective Date/Time Seen: 06/09/ 12:25 Post Op day: 1 Interval history: POD #3: Left ROBERTO Patient doing well. Pain well controlled. Ready for d/c. Review of Systems Constitutional: Constitutional: Denies chills, Denies fatigue, Denies fever(s), Denies night sweats and Denies weakness Cardiovascular: Cardiovascular: Denies chest pain, Denies lightheadedness, Denies palpitations and Denies dyspnea Respiratory: Respiratory: Denies cough, Denies dyspnea and Denies wheezing Gastrointestinal: Gastrointestinal: Denies abdominal pain, Denies diarrhea, Denies nausea and Denies vomiting Musculoskeletal: Musculoskeletal: Reports arthralgias (left hip ), Reports joint swelling (left hip ) and Denies numbness Neurologic: Denies numbness and Denies weakness Endocrine: Endocrine: Denies fatigue and Denies palpitations Allergic/Immunologic: Allergic/Immunologic: Denies wheezing Exam Const: General: comfortable and no acute distress Orientation/consciousness: patient oriented x3 Limitations: no limitations Resp: Effort & Inspection: normal respiratory effort Cardio: Rate: regular rate Rhythm: regular rhythm GI: Inspection: non-distended Skin: General skin exam: normal color and wounds noted (incision left hip C/D/I ) Wounds: wounds noted (incision left hip C/D/I ) Neuro: General: patient oriented x3 Extrem: Left lower extremity: hip/thigh Details: tenderness Location: of the hip Location: laterally and anteriorly, swelling (thigh soft ) Location: of the hip (lateral. ), abnormal ROM (limitations with internal/external rotation and flexion/extension due to recent surgical intervention ) and other (incision lateral hip c/d/i. ), knee Details: normal to inspection and normal ROM; no tenderness and no swelling, lower leg (Negative Janene's Sign ) Details: no edema, ankle (+ankle dorsiflexion/plantarflexion ) Details: normal to inspection, no edema and normal ROM; no tenderness, no swelling and no warmth and foot Details: normal capillary refill, toes with normal ROM, vascular exam Details: dorsalis pedis pulse present and motor-sensory exam light-touch normal in all toes; no tenderness, no ecchymosis and no crepitus Psych: Mental Status: mental status grossly normal Affect: normal affect Objective Data Vital Signs Vital Signs: Vital Signs - 24 hr 06/08/24 14:00 06/08/24 20:00 06/08/24 21:25 Temperature 36.8 C 36.7 C Pulse Rate 96 120 H Respiratory Rate 16 20 Blood Pressure 110/58 L 130/68 Pulse Oximetry 97 98 Oxygen Delivery Room Air 06/09/24 05:56 Temperature 36.6 C Pulse Rate 90 Respiratory Rate 18 Blood Pressure 121/64 Pulse Oximetry 97 Oxygen Delivery Intake/Output Intake/Output: Intake & Output 06/06/24 06/07/24 06/08/24 06/09/24 23:59 23:59 23:59 23:59 Intake Total 990 1615 582 440 Output Total 801 300 Balance 189 1315 582 440 Meds/Results Medications: Active Medications Generic Name Dose Route Start Last Admin Trade Name Freq PRN Reason Stop Dose Admin Acetaminophen 500 mg 06/06/24 17:30 06/08/24 12:22 Acetaminophen 500 Mg Tablet PO 500 mg Q6H PRN Administration Pain Rated 1-3 Alprazolam 0.5 mg 06/03/24 21:35 06/09/24 09:09 Alprazolam (*Crx) 0.5 Mg Tablet PO 0.5 mg TID PRN Administration anxiety Artificial Tears 1 drop 06/07/24 13:34 06/08/24 12:19 Artificial Tears Ophth Soln 15 Ml Bottle EACH EYE 1 drop QID PRN Administration Dry Eye(s) Aspirin 325 mg 06/06/24 21:00 06/09/24 09:05 Aspirin 325 Mg Enteric Tablet PO 325 mg Q12HR LUDY Administration Bupropion HCl 100 mg 06/04/24 09:00 06/09/24 09:05 Bupropion Hcl Sr (12hr) 100 Mg Tabcr PO 100 mg QAM LUDY Administration Citalopram Hydrobromide 40 mg 06/04/24 09:00 06/09/24 09:05 Citalopram Hydrobromide 20 Mg Tablet PO 40 mg DAILY LUDY Administration Diazepam 5 mg 06/06/24 17:30 Diazepam (*Crx) 5 Mg Tablet PO Q6H PRN Anxiety/Muscle Spasm Diphenhydramine HCl 25 mg 06/06/24 17:30 06/06/24 20:27 Diphenhydramine Hcl Inj 50 Mg/Ml Vial IV PUSH 25 mg Q6H PRN Administration Itching Famotidine 20 mg 06/06/24 21:00 06/09/24 09:05 Famotidine 20 Mg Tablet PO 20 mg Q12HR LUDY Administration Hydromorphone HCl 1 mg 06/06/24 17:30 Hydromorphone Hcl Inj (*Crx) 1 Mg/Ml Syr IV PUSH Q2H PRN Breakthrough Pain Rated 7-10 or NPO Hydromorphone HCl 0.5 mg 06/06/24 17:30 Hydromorphone Hcl Inj (*Crx) 1 Mg/Ml Syr IV PUSH Q2H PRN Breakthrough Pain Rated 4-6 or NPO Ibuprofen 800 mg in 200 mls @ 400 mls/hr 06/06/24 17:30 Caldolor 800 Mg/200 Ml IVPB Q6H PRN Breakthrough Pain Rated 1-3 or NPO Loratadine 10 mg 06/04/24 09:00 06/09/24 09:05 Loratadine 10 Mg Tablet PO 10 mg DAILY LUDY Administration Melatonin 10 mg 06/03/24 21:35 06/08/24 21:26 Melatonin 5 Mg Tablet PO 10 mg QHS PRN Administration insomnia Multivitamins Therapeutic 1 tablet 06/04/24 09:00 06/09/24 09:05 Multivitamins Therapeutic Tab (*Bkc) PO 1 tablet DAILY LUDY Administration Naloxone HCl 0.1 mg 06/06/24 17:30 Naloxone Hcl 0.4 Mg/Ml Vial IV PUSH Q2M PRN Opiate Reversal Ondansetron HCl 4 mg 06/06/24 17:30 Ondansetron Inj 4 Mg/2 Ml Vial IV PUSH Q4H PRN Nausea And Vomiting Oxycodone/Acetaminophen 1 tablet 06/06/24 17:30 06/09/24 05:30 Oxycodone/Acetaminophen (*Crx) 5-325 Mg Tablet PO 1 tablet Q4H PRN Administration Pain Rated 4-6 Oxycodone/Acetaminophen 1 tab 06/06/24 17:30 Oxycodone/Acetaminophen (*Crx) 10-325 Mg Tablet PO Q6H PRN Pain Rated 7-10 Polyethylene Glycol 17 gm 06/07/24 09:00 06/09/24 09:06 Polyethylene Glycol 3350 17 Gm Powd.Pack PO Not Given QAM LUDY Senna/Docusate Sodium 2 tab 06/07/24 09:00 06/09/24 09:05 Senna/Docusate Sodium Tablet PO 2 tab BID LUDY Administration Trazodone HCl 50 mg 06/03/24 21:35 06/08/24 21:27 Trazodone Hcl 50 Mg Tablet PO 50 mg QHS LUDY Administration Radiology Results: ITS Impressions Head CT 06/03/24 14:59 IMPRESSION: 1. No fracture or acute intracranial process. 2. Age-related changes including mild to moderate diffuse volume loss and mild to moderate scattered white matter hypoattenuation consistent with chronic small vessel ischemic disease. Cervical Spine CT 06/03/24 15:04 IMPRESSION: 1. No fracture. 2. Severe cervical spondylosis. Hip/Pelvis X-Ray 06/03/24 15:57 IMPRESSION: 1. Subcapital fracture of left femoral neck. 2. Mild left hip osteoarthritis. Chest X-Ray 06/03/24 20:07 IMPRESSION: 1. Large hiatal hernia. Hip X-Ray 06/06/24 16:33 IMPRESSION: 1. Total left hip arthroplasty in near-anatomic alignment.
--- NOTE | 2024-06-09 13:42 | P.DS_ITS ---
DS: Admitting Diagnosis Discharge Date 06/09/24 Admitting Diagnosis Hip pain after a fall. DS: Discharge Diagnosis Discharge Diagnosis (1) Hip fracture: Qualifiers: Encounter type: initial encounter Fracture type: closed Laterality: left Qualified Code(s): S72.002A - Fracture of unspecified part of neck of left femur, initial encounter for closed fracture Code(s): S72.009A - Fracture of unspecified part of neck of unspecified femur, initial encounter for closed fracture Status: Acute (2) S/P total hip arthroplasty: Qualifiers: Laterality: left Qualified Code(s): Z96.642 - Presence of left artificial hip joint Code(s): Z96.649 - Presence of unspecified artificial hip joint Status: Acute (3) Anemia: Code(s): D64.9 - Anemia, unspecified Status: Acute (4) Depression: Qualifiers: Depression Type: persistent depressive disorder Qualified Code(s): F34.1 - Dysthymic disorder Code(s): F32.A - Depression, unspecified Status: Acute (5) Acute hyponatremia: Code(s): E87.1 - Hypo-osmolality and hyponatremia Status: Acute (6) QT prolongation: Code(s): R94.31 - Abnormal electrocardiogram [ECG] [EKG] Status: Acute DS: Summary Hospital Course Reason for hospitalization: 74yo female with anxiety, depression, hiatal hernia and osteopenia here for hip pain after a fall. Please see H&P for details. Hospital Course: Patient presents with hip pain after fall found to have left hip fracture. Fracture due to ground level fall with no preceding symptoms. Orthopedic surgery was consulted. Patient's pain was controlled. UA was clear. WBC was 12K but normal now so probably stress response. Kelsey catheter was placed for urine management due to immobility but since removed. Orthopedics was consulted and patient underwent left ROBERTO 06/06. PT/OT started. She has depression but mood remained stable. We continued her home medications. Patient had mild acute hyponatremia at 132 and she received 1 L normal saline bolus in the ER and was started on LR. Sodium better. IV fluids stopped. Sodium low but stable and suspect related to SIADH from pain. EKG showing NSR with LAFB and nonspecific ST and T wave changes. QTc 495. Celexa was held. Repeat EKG showing QTc 358. Mag 2.1. Celexa resumed. Hgb dropped to 8 related to surgery and IV fluids. IV fluids off now. She is eating. EBL 100mL. Repeat Hgb stable. She also complained of right eye feeling 'tired' but appears to be long standing. She was advised to follow up with her pulmonary care nurse. Symptoms better with Refresh eye drops. She overall did well and was able to be discharged on 06/09/24. Status at Discharge Cognitive/behavioral status at discharge: stable Time Spent with Patient Time attestation: Total time spent providing and/or coordinating discharge services: 35 minutes Time spent: Greater than 30 minutes Exam Narrative: AF 97.9 121/64 90 18 97% ra Gen - NARD Chest - CTA bilaterally, nml RR CV - RRR S1/S2 Abd - Soft, NT/ND, Positive BS Ext - No pedal edema. Dressing is clean and dry Psych - Nml mood and affect Skin - Warm and dry Discharge Plan Discharge Attending physician on discharge: Gaurav Weber Consulting providers: Shankar Malone Discharging Clinician: Gaurav Weber Anticipated Discharge Date/Time: 06/09/24 13:49 Patient Disposition: SNF Activity: may shower, no driving and follow weight bearing status Diet: as tolerated Wound Care Instructions: follow printed instructions Discharge Instructions: Post Op Total Hip Replacement Instructions Dr. Shankar Malone [phone] * Your dressing will be changed prior to your discharge. You will be sent home with one additional dressing to be changed on post op day 7 by the home health RN. You may remove the dressing on post op day 14. Your incision was closed with dermabond, allow the dermabond to fall off naturally once your dressing is removed. Do not pull at the dermabond or disrupt incision healing. * You may shower with your dressing but do not submerge in a bath tub. * Do not drive or operate machinery until you are released by Dr. Malone. * Do not walk without a walker for any reason until you are released by Dr. Malone. * Continue to apply ice to the hip intermittently for additional pain relief. Protect your skin with a towel or pillow case. * Continue to follow strict total hip replacement precautions. * Your first post op appointment was sent to you via mail preoperatively. If you have any questions or are unable to make your appointment, please contact our office for scheduling questions. * Your medications have been sent to your pharmacy. You have been sent home with pain medication. Please orange picker machine operator an over the counter stool softener to prevent constipation due to narcotic use. Please keep this in mind during your postoperative recovery. If you are not experiencing regular bowel movements, please contact our office for further instructions. * Please contact our office with any questions/concerns regarding your hip at [phone]. Take precautions to avoid falls. Rise slowly from a lying or sitting position. Pause before standing or walking. Follow-up with the provider at the facility. Thank you for using [facility] for your health care needs. Patient Language: Macedonian Stand Alone Forms: General Discharge Information Follow-up/Referrals: Shankar Malone MD [Physician] - 06/24/24 9:45 am Praveena Acosta MD [Primary Care Provider] - Discharge Medications: New oxycodone-acetaminophen 5-325 mg Tablet 1 tablet PO Q4-6H PRN (Reason: pain) Qty: 40 0RF aspirin 325 mg Tablet,Delayed Release (Dr/Ec) 325 mg PO Q12HR 28 Days Qty: 56 0RF Continued fexofenadine [Toya Allergy] 180 mg tablet 180 mg PO DAILY multivitamin Tablet 1 tablet PO DAILY melatonin 10 mg capsule 10 mg PO QHS PRN (Reason: insomnia) bupropion HCl 100 mg tablet sustained-release 12 hr 100 mg PO QAM Qty: 30 3RF trazodone 50 mg tablet 50 mg PO QHS Qty: 90 4RF citalopram 40 mg tablet 40 mg PO DAILY Qty: 90 1RF alprazolam 0.5 mg tablet 0.5 mg PO TID PRN (Reason: anxiety) Qty: 90 1RF Date of admission: 06/03/24 20:50 Primary Care Provider: Praveena Acosta Admitting Provider: Amberly Webster Attending physician on admission: Shankar Malone Condition: Stable Hospitalist MIPS Heart Failure (Exclusion) Patient has history of Heart Transplant or Left Ventricular Assistive Device?: No IF YES, STOP HERE Heart Failure (Qualifier) Patient has current or prior documentation of LVEF less than or equal to 40%, or mod/servere depressed LVSF?: No IF NO, STOP HERE
[2024-06-09 14:00] VITALS: BP 138/62; PULSE 68; RESP 18; TEMP 36.2; O2SAT 100
[2024-06-09 14:57] LABS: SARS-CoV-2 RNA PCR Negative (Negative)
[2024-06-09] MEDS: ACETAMINOPHEN 500 MG TABLET PO (15:51)
--- OUTSIDE RECORDS SUMMARY | 2024-06-14 22:59 | XMS_ITS | Patient Health Summary ---
Author Organization [facility] [employer] Address [address] [place] [address] Care Team Providers Care Hall Supervisor Name Role Phone Praveena Acosta MD Primary Care Provider [phone] Note from [facility],non-owned Affiliates and Associated Physician Practices is amultiple site organization consisting of ambulatory clinics and hospital sitesin [place], [place], [place] and [place]. This disclosure is being madepursuant to the Care Everywhere program and may not contain all information available regarding this patient. Last updated 18.[facility] [employer] Allergies No known active allergies Medications * Be aware that medications may not be up to date on this document. Alwaysverify current medications with the patient. * citalopram (CELEXA) 40 MG tablet Take 40 mg by mouth once daily * ALPRAZolam (XANAX) 0.5 MG tablet Take 0.5 mg by mouth 3 times daily as needed for Anxiety * traZODone (DESYREL) 50 MG tablet Take 50 mg by mouth at bedtime * fluticasone propionate (FLONASE) 50 MCG/ACT nasal spray(Started 09/18/2017) [place] 2 sprays into each nostril once daily Social History Tobacco Use Types Packs/Day Years Used Date Smoking Tobacco: Never Smokeless Tobacco: Never Sex and Gender Information Value Date Recorded Sex Assigned at Not on file Gender Identity Not on file Sexual Orientation Not on file Last Filed Vital Signs Vital Sign Reading Time Taken Comments Blood Pressure 126/82 09/18/2017 3:56 PM CDT Pulse 84 09/18/2017 3:56 PM CDT Temperature 36.9 ??C (98.5 ??F) 09/18/2017 3:56 PM CD T Respiratory Rate 16 09/18/2017 3:56 PM CDT Oxygen Saturation 96% 09/18/2017 3:56 PM CDT Inhaled Oxygen Concentration - - Weight 77.1 kg (170 lb) 09/18/2017 3:56 PM CDT Height 172.7 cm (5' 8 ) 09/18/2017 3:56 PM CDT Body Mass Index 25.85 09/18/2017 3:56 PM CDT Care Teams Hall Supervisor Relationship Specialty Start Date End Date Praveena Acosta MD [address] [place] [address] PCP - General Family Medicine 09/18/17
--- OUTSIDE RECORDS SUMMARY | 2024-06-14 22:59 | XMS_ITS | Continuity of Care Document ---
Author Organization [facility] Address [address] [place] [address] Phone Care Team Providers Care Retail Selling Floor Leader Name Role Phone Stephy Prasad Unavailable Unavailable Procedures Procedure Date Post-op Follow-up Visit Remove Cataract, Insert Lens Post-op Follow-up Visit Post-op Follow-up Visit [facility] Post-op Follow-up Visit Remove Cataract, Insert Lens Eye Exam, New Patient [facility] Advance Directives Directive Yes / No Effective Date File Name No Information Encounters Encounter Description Practice Location Reason(s) For Visit Diagnoses Date Provider Providers Copied on Encounter [facility], [address] [place] [address] [address], [place], [place], [id number], [place] tel:[phone] [facility] No Information 2200 8 Shanice Yadav [address] , [address], [place], [place], [facility], [place]. tel:[phone] [facility], [address] [place] [address] [address], [place], [place], [id number], [place] tel:[phone] [facility] No Information Sep- 0-200 8 Shanice Yadav [address] , [address], [place], [facility], [place]. tel:[phone] [facility], [address] [place] [address] [address], [place], [place], [id number], [place] tel:[phone] [facility] No Information Apr-1 0-200 8 Farmer OD Antony. [address] , [address], [place], [facility], [place]. tel:[phone] [facility], [address], [place], [place], [id number], [place] tel:[phone] [facility] No Information Mar-2 5-200 8 Prasad Stephy. [address] , [address], [place], [facility], [place]. tel:[phone] Referring Provider: Antony Farmer OD Kait, [address], [place], [facility]. tel:[phone] [facility], [address], [place], [place], [id number], [place] tel:[phone] [facility] No Information Mar-2 0-200 8 Farmer OD Antony. [address] , [address], [place], [facility], [place]. tel:[phone] [facility], [address], [place], [place], [id number], [place] tel:[phone] [facility] No Information Mar-1 9-200 8 Prasad Stephy. [address] , [address], [place], [facility], [place]. tel:[phone] [facility], [id number] [place] [address] [address], [place], [place], [id number], [place] tel:[phone] [facility] No Information Mar-0 4-200 8 Prasad Stephy. [address] , [address], [place], [facility], [place]. tel:[phone] Referring Provider: Praveena Acosta, [address], [place], [address]. tel:[phone] Family History Family Member Type Diagnosis Age At Onset No Information Payers Payer name Insurance type Covered alliance party ID Authoriza tion(s) No Information Social History Type Description Quantity Date Captured Comments Sex Female Smoking Status No Information Chief Complaint And Reason For Visit No Information Reason For Referral Reason For Referral No Information History Of Present Illness Encounter Date Complaint History Of Prese nt Illness No Information Functional Status Date Functional Assessmen t No Information Instructions Date Instruction Additional Infor mation No Information Assessments Type Assessment Date No Information Patient Care Teams Name Effective Dates (start - stop) Status Members No Information
--- OUTSIDE RECORDS SUMMARY | 2024-06-14 22:59 | XMS_ITS | Clinical Summary ---
Author Organization [facility] [employer] Address [address] [place] [address] Care Team Providers Care Maintenance Service Supervisor Name Role Phone Praveena Acosta MD Primary Care Provider [phone] Source Comments [facility] [employer],non-owned Affiliates and Associated Physician Practices is amultiple site organization consisting of ambulatory clinics and hospital sitesin [place], [place], [place] and [place]. This disclosure is being madepursuant to the Care Everywhere program and may not contain all information available regarding this patient. Last updated 18.[facility] [employer] Allergies No known active allergies Medications * Be aware that medications may not be up to date on this document. Alwaysverify current medications with the patient. Medication Sig Dispensed Refills Start Date End Date Status citalopram (CELEXA) 40 MG tablet Take 40 mg by mouth once daily Active ALPRAZolam (XANAX) 0.5 MG tablet Take 0.5 mg by mouth 3 times daily as needed for Anxiety Active traZODone (DESYREL) 50 MG tablet Take 50 mg by mouth at bedtime Active fluticasone propionate (FLONASE) 50 MCG/ACT nasal sprayIndications:Acut e pansinusitis, recurrence not specified [place] 2 sprays into each nostril once daily 1 bottles 09/18/2017 Active Family History Medical History Relation Name Comments Arthritis - Osteo Father Cancer - Colon Mother Relation Name Status Comments Father Mother Social History Tobacco Use Types Packs/Day Years [...] Mass Index 25.85 09/18/2017 3:56 PM CDT Plan of Treatment Health Maintenance Due Date Last Done Comments BONE DENSITY TESTING 1950 COLOGUARD (AGES 45-75) - COL ON CA SCREENING 1950 COLON MONITORING 1950 COLONOSCOPY - COLON CA SCREENING 1950 CT COLONOGRAPHY - COLON CA SCREENING 1950 Colorectal Cancer Screening 1950 FIT - COLON CA SCREENING 1950 FLEX SIG - COLON CA SCREENING 1950 LIPID TESTING 1950 MAMMOGRAM 1950 MEDICARE AWV ? 12 MONTHS 1950 HEPATITIS C SCREENING 03/15/1968 DTAP/TDAP/TD VACCINES (1 - Tdap) 1969 ZOSTER VACCINE (1 of 2) 2000 PNEUMOCOCCAL VACCINE 65+ (1 of 1 - PCV) 2015 SCREENING FOR DIABETES 09/18/2017 DEPRESSION SCREENING 06/18/2023 COVID-19 VACCINE (1 - 2023-2 5 season) 2024 INFLUENZA VACCINE (#1) 2024 Respiratory Syncytial Virus (RSV) Vaccine Pt: or over 60 yrs (1 - 1-dose 75+ series) 2025 HEPATITIS B VACCINE Aged Out No longe r eligible based on patient's age to complete this topic HIB VACCINE Aged Out No longer eligi ble based on patient's age to complete this topic HPV VACCINE Aged Out No longer eligi ble based on patient's age to complete this topic MENINGOCOCCAL VACCINE Aged Out No ana ivis eligible based on patient's age to complete this topic Care Teams Maintenance Service Supervisor Relationship Specialty Start Date End Date Praveena Acosta MD [address] [place] [address] PCP - General Family Medicine 09/18/17
--- OUTSIDE RECORDS SUMMARY | 2024-06-14 22:59 | XMS_ITS | Encounter Summary ---
Author Organization [facility] Address [address] [place] [address] Care Team Providers Care Business Technology Analyst Name Role Phone Praveena Acosta MD Primary Care Provider [phone] Reason for Visit * Reason Comments Sinusitis sore throat Encounter Details Date Type Department Care Team (Late st Contact Info) Description 09/18/2017 3:40 PM CDT Office Visit [facility] [address] [phone] Provider, [facility] Acute pansinusitis, recurrence not specified (Primary Dx) Social History Tobacco Use Types Packs/Day Years Used Date Smoking Tobacco: Never Smokeless Tobacco: Never Sex and Gender Information Value Date Recorded Sex Assigned at Not on file Gender Identity Not on file Sexual Orientation Not on file documented as of this encounter Last Filed Vital Signs Vital Sign Reading [...] Mass Index 25.85 09/18/2017 3:56 PM CDT documented in this encounter Patient Instructions * Patient Instructions* Jorge Alberto Crabtree, [employer] - 09/18/2017 4:05 PM CDT Images from the original note were not included. Sinusitis COMMUNICATIONS SYSTEMS ENGINEER: Sinusitis is inflammation or infection of your sinuses. It is most often caused by a virus. Acute sinusitis may last up to 12 weeks. Chronic sinusitis lasts longer than 12 weeks. Recurrent sinusitis means you have 4 or more times in 1 year. Common symptoms include the following: ?? Fever ?? Pain, pressure, redness, or swelling around the forehead, cheeks, or eyes ?? Thick yellow or green discharge from your nose ?? Tenderness when you touch your face over your sinuses ?? Dry cough that happens mostly at night or when you lie down ?? Headache and face pain that is worse when you lean forward ?? Tooth pain, or pain when you chew Seek care immediately if: ?? Your eye and eyelid are red, swollen, and painful. ?? You cannot open your eye. ?? You have vision changes, such as double vision. ?? Your eyeball bulges out or you cannot move your eye. ?? You are more sleepy than normal, or you notice changes in your ability to think, move, or talk. ?? You have a stiff neck, a fever, or a bad headache. ?? You have swelling of your forehead or scalp. Contact your healthcare provider if: ?? Your symptoms do not improve after 3 days. ?? Your symptoms do not go away after 10 days. ?? You have nausea and are vomiting. ?? Your nose is bleeding. ?? You have questions or concerns about your condition or care. Treatment for sinusitis: Your symptoms may go away on their own. Your healthcare provider may recommend watchful waiting for up to 10 days before starting antibiotics. You may need any of the following: ?? Acetaminophen decreases pain and fever. It is available without a doctor's order. Ask how much to take and how often to take it. Follow directions. Read the labels of all other medicines you are using to see if they also contain acetaminophen, or ask your doctor or pharmacist. Acetaminophen can cause liver damage if not taken correctly. Do not use more than 4 grams (4,000 milligrams) total of acetaminophen in one day. ?? NSAIDs , such as ibuprofen, help decrease swelling, pain, and fever. This medicine is available with or without a doctor's order. NSAIDs can cause stomach bleeding or kidney problems in certain people. If you take blood thinner medicine, always ask your healthcare provider if NSAIDs are safe foryou. Always read the medicine label and follow directions. ?? Nasal steroid sprays may help decrease inflammation in your nose and sinuses. ?? Decongestants help reduce swelling and drain mucus in the nose and sinuses. They may help you breathe easier. ?? Antihistamines help dry mucus in the nose and relieve sneezing. ?? Antibiotics help treat or prevent a bacterial infection. ?? Take your medicine as directed. Contact your healthcare provider if you think your medicine is not helping or if you have side effects. Tell him or her if you are allergic to any medicine. Keep a list of the medicines, vitamins, and herbs you take. Include the amounts, and when and why you take them. Bring the list or the pill bottles to follow-up visits. Carry your medicine list with you in case of an emergency. Self-care: ?? Rinse your sinuses. Use a sinus rinse device to rinse your nasal passages with a saline (salt water) solution or distilled water. Do not use tap water. This will help thin the mucus in your nose and rinse away pollen and dirt. It will also help reduce swelling so you can breathe normally. Ask your healthcare provider how often to do this. ?? Breathe in steam. Heat a bowl of water until you see steam. Lean over the bowl and make a tent over your head with a large towel. Breathe deeply for about 20 minutes. Be careful not to get too close to the steam or burn yourself. Do this 3 times a day. You can also breathe deeply when you take ahot shower. ?? Sleep with your head elevated. Place an extra pillow under your head before you go to sleep to help your sinuses drain. ?? Drink liquids as directed. Ask your healthcare provider how much liquid to drink each day and which liquids are best for you. Liquids will thin the mucus in your nose and help it drain. Avoid drinks that contain alcohol or caffeine. ?? Do not smoke, and avoid secondhand smoke. Nicotine and other chemicals in cigarettes and cigars can make your symptoms worse. Ask your healthcare provider for information if you currently smoke and need help to quit. E-cigarettes or smokeless tobacco still contain nicotine. Talk to your healthcare provider before you use these products. Prevent the spread of germs that cause sinusitis: Wash your hands often with soap and water. Wash your hands after you use the bathroom, change a child's diaper, or sneeze. Wash your hands before youprepare or eat food. Follow up with your healthcare provider as directed: You may be referred to an ear, nose, and throat specialist. Write down your questions so you remember to ask them during your visits. ?? 2017 [employer] Information is for End User's use only and may not be sold, redistributed or otherwise used for commercial purposes. All illustrations and images included in CareNotes?? are the copyrighted property of [employer]. or [employer]. The above information is an educational technology specialist only. It is not intended as medical advice for individual conditions or treatments. Talk to your doctor, nurse or pharmacist before following any medical regimen to see if it is safe and effective for you. documented in this encounter Progress Notes * Jorge Alberto Crabtree APRN-CNP - 09/18/2017 4:02 PM CDT Subjective: Dayan Triplett is a 67 y.o. female who presents for evaluation: Chief Complaint Patient presents with ??? Sinusitis sore throat Primary Care Physician is Praveena Acosta MD. Symptoms include sinus congestion/pressure, nasal congestion, runny nose, post nasal drainage, Pt also has sore scratchy throat. Onset of symptoms was 10 days ago, unchanged since that time. no fever. She is drinking moderate amounts of fluids. Evaluation to date: none. Treatment to date: Flonase, but pt is out currently No Known Allergies Outpatient Prescriptions Marked as Taking for the 09/18/17 encounter (Office Visit) with Provider, Camilla Calderon Medication Sig ??? citalopram (CELEXA) 40 MG tablet Take 40 mg by mouth once daily ??? ALPRAZolam (XANAX) 0.5 MG tablet Take 0.5 mg by mouth 3 times daily as needed for Anxiety ??? traZODone (DESYREL) 50 MG tablet Take 50 mg by mouth at bedtime ??? fluticasone propionate (FLONASE) 50 MCG/ACT nasal spray Antimony 2 sprays into each nostril once daily ??? fluticasone propionate (FLONASE) 50 MCG/ACT nasal spray Antimony 2 sprays into each nostril once daily ??? amoxicillin-clavulanate (AUGMENTIN) 875-125 MG tablet Take 1 tablet by mouth 2 times daily withmorning and evening meal for 7 days Past Medical History: Diagnosis Date ??? Anxiety ??? Chronic sinusitis Social History Social History ??? Marital status: Single Spouse name: N/A ??? Number of children: N/A ??? Years of education: N/A Occupational History ??? Not on file. Social History Main Topics ??? Smoking status: Never Smoker ??? Smokeless tobacco: Never Used ??? Alcohol use Not on file ??? Drug use: Not on file ??? Sexual activity: Not on file Other Topics Concern ??? Not on file Social History Narrative ??? No narrative on file Medications reviewed. Review of Systems Pertinent items are noted in HPI Constitutional: Negative Eyes: Negative Ears, nose, mouth, and throat: post nasal drainage, sore scratchy throat, nasal congestion sinus congestion and pressure Respiratory: Negative Cardiovascular: Negative Gastrointestinal: Negative Genitourinary:Negative Skin: Negative Musculoskeletal:Negative Neurological: Negative Objective: BP 126/82 (BP SITE: LEFT ARM, BP POSITION: SITTING, BP CUFF SIZE: Adult) Pulse 84 Temp 98.5 ??F (Oral) Resp 16 Ht 1.727 m (5' 8 ) Wt 77.1 kg (170 lb) SpO2 96% BMI 25.85 kg/m2 Skin: Physical Exam Exam General appearance: alert, cooperative, no distress, oriented to person, place, and time, wellappearing Head: normocephalic, without trauma Eyes: sclera and conjunctiva clear, EOMI and PERRLA, lids normal Ears: canals clear, tympanic membranes normal, hearing intact to voice Nose: nares open; no septal deviation is noted, mucosa erythematous and swollen, maxillary tenderness bilaterally, frontal tenderness bilaterally, ethmoid tenderness bilaterally Throat: no mucous membrane abnormalities, lips, mucosa, and tongue normal; teeth and gums normal Neck: range of motion is intact, no masses, Nodes: mild, benign-appearing anterior cervical adenopathy Lungs: breath sounds normal and symmetric; no rales or wheezes, no cough noted during exam Heart: regular rhythm, normal S1 and S2, without murmurs, gallops or rubs Skin: no rashes or other abnormalities are noted Neurologic: mental status normal; alert and oriented X 3 Assessment: . Encounter Diagnoses Name Primary? Acute pansinusitis, recurrence not specified Yes Plan: Discussed the dx and tx of sinusitis. Suggested symptomatic OTC remedies. Antibiotics per orders. Nasal steroids per orders. RTC prn. If symptoms persist on antibiotics or worsen at any time, follow up with a health care provider, clinic or emergency care Drink plenty of fluids and get plenty of rest You can take an over the counter decongestant and/or antihistamine daily (per package directions) such as Zyrtec-D You can take Tylenol or ibuprofen as needed for fever or pain (per package directions) Continue to follow up with Praveena Acosta MD as directed. After Visit Summary reviewed with patient. The patient indicates understanding of these issues and agrees with the plan. Patient discharged to Home .LUIS F Quiroz 09/18/2017 4:23 PM Orders Placed This Encounter ??? fluticasone propionate (FLONASE) 50 MCG/ACT nasal spray Sig: Antimony 2 sprays into each nostril once daily Dispense: 1 bottles Refill: 0 ??? amoxicillin-clavulanate (AUGMENTIN) 875-125 MG tablet Sig: Take 1 tablet by mouth 2 times daily with morning and evening meal for 7 days Dispense: 14 tablet Refill: 0 No results found for this or any previous visit (from the past 24 hour(s)). documented in this encounter Miscellaneous Notes * Addendum Note - Jorge Alberto Crabtree APRN-CNP - 09/18/2017 4:40 PM CDTAddended by: JORGE ALBERTO CRABTREE on: 09/18/2017 04:40 PM Modules accepted: Orders documented in this encounter Plan of Treatment Not on file documented as of this encounter Visit Diagnoses Diagnosis Acute pansinusitis, recurrence not specified- Primary documented in this encounter Care Teams Business Technology Analyst Relationship Specialty Start Date End Date Praveena Acosta MD [address] [place] [address] PCP - General Family Medicine 09/18/17 documented as of this encounter
--- OUTSIDE RECORDS SUMMARY | 2024-06-14 22:59 | XMS_ITS | Encounter Summary ---
Author Organization [facility] Address [address] [place] [address] Care Team Providers Care Memorial Designer Name Role Phone Praveena Acosta MD Primary Care Provider [phone] Reason for Visit * Reason Onset Date Comments Follow-up 09/20/2017 Encounter Details Date Type Department Care Team (Late st Contact Info) Description 09/20/2017 Telephone [facility] [facility] [address] [phone] Priya Greenwood Follow-up Social History Tobacco Use Types Packs/Day Years Used Date Smoking Tobacco: Never Smokeless Tobacco: Never Sex and Gender Information Value Date Recorded Sex Assigned at Not on file Gender Identity Not on file Sexual Orientation Not on file documented as of this encounter Plan of Treatment Not on file documented as of this encounter Visit Diagnoses Not on filedocumented in this encounter Care Teams Memorial Designer Relationship Specialty Start Date End Date Praveena Acosta MD [address] [place] [address] PCP - General Family Medicine 09/18/17 documented as of this encounter
--- OUTSIDE RECORDS SUMMARY | 2024-06-14 22:59 | XMS_ITS | Referral Summary ---
Author Organization [facility] Address [address] [place] [address] Care Team Providers Care Television Maintenance Man Name Role Phone Praveena Acosta MD Primary Care Provider Source Comments [facility],non-owned Affiliates and Associated Physician Practices is amultiple site organization consisting of ambulatory clinics and hospital sitesin [place], [place], [place] and [place]. This disclosure is being madepursuant to the Care Everywhere program and may not contain all information available regarding this patient. Last updated 18.[facility] Allergies No known active allergies Medications * [...] nasal sprayIndications:Acut e pansinusitis, recurrence not specified [place] 2 sprays into each nostril once daily 1 bottles 09/18/2017 Active Social History Tobacco Use Types Packs/Day Years [...] 09/18/2017 3:56 PM CDT Plan of Treatment Not on file Care Teams Television Maintenance Man Relationship Specialty Start Date End Date Praveena Acosta MD [address] [place] [address] PCP - General Family Medicine 09/18/17
--- OUTSIDE RECORDS SUMMARY | 2024-06-14 22:59 | XMS_ITS | Continuity of Care Document ---
Author Organization [facility] Address [address] [place] [address] Phone Care Team Providers Care Consultant Rn Name Role Phone Stephy Prasad Unavailable Unavailable Procedures Procedure Date Post-op Follow-up Visit Remove Cataract, Insert Lens Post-op Follow-up Visit Post-op Follow-up Visit [facility] Post-op Follow-up Visit Remove Cataract, Insert Lens Eye Exam, New Patient [facility] Advance Directives Directive Yes / No Effective Date File Name No Information Encounters Encounter Description Practice Location Reason(s) For Visit Diagnoses Date Provider Providers Copied on Encounter [facility], [address] [place] [address] [address], [place], [place], [id number], [place] tel:[phone] [facility] No Information [address] Shanice Yadav [address], [place], [place], [facility], [place]. tel:[phone] [facility], [address] [place] [address] [address], [place], [place], [id number], [place] tel:[phone] [facility] No Information Sep- 0-200 8 Shanice Yadav [address], [place], [place], [facility], [place]. tel:[phone] [facility], [address] [place] [address] [address], [place], [place], [id number], [place] tel:[phone] [facility] No Information Apr-1 0-200 8 Farmer OD Antony. [address], [place], [place], [facility], [place]. tel:[phone] [facility], [address], [place], [place], [id number], [place] tel:[phone] [facility] No Information Mar-2 5-200 8 Prasad Stephy. [address] , [address], [place], [place], [facility], [place]. tel:[phone] Referring Provider: Antony Farmer OD Kait, [address], [place], [place], [facility]. tel:[phone] [facility], [address], [place], [place], [id number], [place] tel:[phone] [facility] No Information Mar-2 0-200 8 Farmer OD Antony. [address] , [address], [place], [facility], [place]. tel:[phone] [facility], [address], [place], [place], [id number], [place] tel:[phone] [facility] No Information Mar-1 9-200 8 Prasad Stephy. [address] , [address], [place], [facility], [place]. tel:[phone] [facility], [address] [place] [address] [address], [place], [place], [id number], [place] tel:[phone] [facility] No Information Mar-0 4-200 8 Prasad Stephy. [address] , [address], [place], [facility], [place]. tel:[phone] Referring Provider: Praveena Acosta, [address], [place], [address]. tel:[phone] Family History Family Member Type Diagnosis Age At Onset No Information Payers Payer name Insurance type Covered democrat ID Authoriza tion(s) No Information Social History [...]
--- OUTSIDE RECORDS SUMMARY | 2024-06-14 22:59 | XMS_ITS | Continuity of Care Document ---
Author Organization [facility] Address [address] [place] [address] Phone Care Team Providers Care Broach Setter Name Role Phone Stephy Prasad Unavailable Unavailable [...] Provider Providers Copied on Encounter [facility], [address] [place] [address] [address], [place], [place], [id number], [place] tel:[phone] [facility] No Information [address] Shnaice Yadav [address], [place], [place], [facility], [place]. tel:[phone] [facility], [address] [place] [address] [address], [place], [place], [id number], [place] tel:[phone] [facility] No Information Sep- 0-200 8 Shanice Yadav [address] , [address], [place], [facility], [place]. tel:[phone] [facility], [address] [place] [address] [address], [place], [place], [id number], [place] tel:[phone] [facility] No Information Apr-1 0-200 8 Farmer OD Antony. [address] [facility] , [address], [place], [facility], [place]. tel:[phone] [facility], [address], [place], [place], [id number], [place] tel:[phone] [facility] No Information Mar-2 5-200 8 Prasad Stephy. [address] [facility] , [address], [place], [place], [facility], [place]. tel:[phone] Referring Provider: Antony Farmer OD Kait, [address], [place], [place], [facility]. tel:[phone] [facility], [address], [place], [place], [id number], [place] tel:[phone] [facility] No Information Mar-2 0-200 8 Farmer OD Antony. [address] [facility] , [address], [place], [facility], [place]. tel:[phone] [facility], [address], [place], [place], [address], [place] tel:[phone] [facility] No Information Mar-1 9-200 8 Prasad Stephy. [address] [facility] , [address], [place], [facility], [place]. tel:[phone] [facility], [address] [place] [address] [address], [place], [place], [address], [place] tel:[phone] [facility] No Information Mar-0 4-200 8 Prasad Stephy. [address] [facility] , [address], [place], [place], [facility], [place]. tel:[phone] Referring Provider: Praveena Acosta, [address], [place], [address]. tel:[phone] Family History Family Member Type Diagnosis Age At Onset No Information Payers Payer name Insurance type Covered constitution party ID Authoriza tion(s) No Information Social [...]
== END 2024-06-09 18:20 | DRG 522 ==
LOC: ANHED 21:34 → ANH3MEDSUR 23:32
PROVIDERS: Orthopaedic Surgery; Admitting Provider Internal Medicine; Emergency Provider Emergency Medicine; PCP Family Medicine; Visit Provider Internal Medicine
PROC: 0SRB03Z Replacement of Left Hip Joint with Ceramic Synthetic Substitute, Open Approach (ICD-10-PCS; CPT 27130; principal; 2024-06-06 13:30)
DX: S72.012A Unspecified intracapsular fracture of left femur, initial encounter for closed fracture (principal); E87.1 Hypo-osmolality and hyponatremia; W18.30XA Fall on same level, unspecified, initial encounter; R94.31 Abnormal electrocardiogram [ECG] [EKG]; D64.9 Anemia, unspecified; F34.1 Dysthymic disorder; F41.9 Anxiety disorder, unspecified; F32.A Depression, unspecified; K44.9 Diaphragmatic hernia without obstruction or gangrene; M21.40 Flat foot [pes planus] (acquired), unspecified foot; M85.88 Other specified disorders of bone density and structure, other site; Z96.652 Presence of left artificial knee joint; Z98.41 Cataract extraction status, right eye; Z98.42 Cataract extraction status, left eye; Z96.1 Presence of intraocular lens
CPT/HCPCS: 36415; 70450; 71045; 72125; 73502; 80048; 80053; 81003; 83735; 85025; 85027; 85610; 85730; 86850; 86900; 86901; 87635; 93005; 96361; 96374; 96375; 96376; 97110; 97161; 97165; 97530; 97535; 99285; A9270; C1713; C1776; J0171; J0330; J0690; J1100; J1171; J1200; J1885; J2003; J2270; J2405; J2704; J2795; J3010; J7030; J7120

== ENCOUNTER 2025-03-06 08:06 | Emergency (ER) | payer MEDICARE, SELFPAY ==
[2025-03-06] VITALS (11 sets, daily range): BP systolic 94–126; BP diastolic 49–70; PULSE 87–121; RESP 16–22; TEMP 36.8; O2SAT 90–96
--- NOTE | ~2025-03-06 | CT_ITS ---
EXAMINATION: CT brain wo con DATE: 03/06/2025 08:44 INDICATION: Head injury. TECHNIQUE: Computed tomography (CT) of the head was performed without intravenous contrast. The mA was adjusted according to patient size. Iterative reconstruction technique was employed. The dose-length product was 605.33 mGy-cm. COMPARISON: Head CT 06/03/2024 FINDINGS: There are scattered areas of low attenuation in the cerebral white matter. There is no intracranial hemorrhage, acute infarction, or abnormal intracranial mass lesion. There are old infarcts in the bilateral basal ganglia. The ventricles are normal in size. There are likely changes of ocular lens replacement surgeries. There is mild mucosal thickening in the ethmoid sinuses. The mastoid air cells are normal. IMPRESSION: 1. Old infarcts in the bilateral basal ganglia. 2. Stable moderate nonspecific cerebral white matter disease, which likely represents chronic small vessel ischemic disease. Reviewed, dictated and finalized at location E. IMPRESSION: 1. Old infarcts in the bilateral basal ganglia. 2. Stable moderate nonspecific cerebral white matter disease, which likely repr esents chronic small vessel ischemic disease.
--- NOTE | ~2025-03-06 | CT_ITS ---
EXAMINATION: CT pelvis wo con COMPARISON: None HISTORY: hip pain, pelvic frac, trauma TECHNIQUE: Axial images were obtained without IV contrast. Sagittal, coronal reconstruction images were obtained from the axial views. CT scan performed using dose optimization techniques including the following automated exposure control; adjustment of mA and/or kV; use of iterative reconstruction technique. Automatic exposure control was used to reduce radiation dose. Permanent radiation dose record is archived to PACS. FINDINGS: Moderate degenerative changes of the visualized lumbar spine of the sacroiliac joints bilaterally with partial sacralization of L5 on the right side. There are bilateral acute appearing fractures of the sacral alar superimposed upon chronic appearing sacral insufficiency fractures. There are moderate degenerative changes of the sacroiliac joints bilaterally. Left hip arthroplasty appears intact no lucency around the hardware. There is no dislocation. There is a nondisplaced fracture of the left inferior pubic ramus. There is a nondisplaced fracture of the left superior pubic ramus at its junction with the symphysis pubis. There is a nondisplaced fracture of the right superior pubic ramus at its junction with the symphysis pubis. There is a nondisplaced fracture of the coccyx. There is a fracture of the left posterior acetabulum which extends anteriorly to involve the anterior acetabulum as well, there is periosteal reaction at this is probably chronic however superimposed acute fracture is suspected. Minimal degenerative changes of the right acetabular femoral joint. No avascular necrosis. Soft tissues are unremarkable. The intrapelvic soft tissues demonstrate small amount of retroperitoneal hemorrhage related to the pelvic fractures. Moderate fecal content. There is stranding within the presacral space probably also posttraumatic. Remaining visualized bowel and mesentery are unremarkable. IMPRESSION: 1. Bilateral fractures detailed above 2. Hemorrhage within the pelvis detailed above, follow-up suggested to assess Reviewed, dictated and finalized at location A.
--- NOTE | ~2025-03-06 | CT_ITS ---
CT CERVICAL SPINE WITHOUT CONTRAST CLINICAL HISTORY: trauma Technique: Axial images thoracic inlet to skull base Sagittal and coronal reformats. No contrast CT images acquired with automatic exposure control for dose reduction DLP: 179 mGy-cm Comparison: None Findings: No acute fracture. Tiny vascular foramina C2 mimicking cortical disruption. Grade 1 retrolisthesis of C3 on 4, C4 on 5, C5 on C6. Vertebral bodies normal height and alignment. Moderate degenerative changes. Severe multilevel disc disease. Prevertebral soft tissues within normal limits. Visualized lung apices: Clear. Visualized thyroid: Unremarkable. No enlarged cervical nodes. IMPRESSION: 1. No acute findings. Reviewed, dictated and finalized at location R. IMPRESSION: 1. No acute findings.
--- NOTE | ~2025-03-06 | XR_ITS ---
EXAMINATION: XR hip BI 2V w AP pelvis DATE: 03/06/2025 08:50 INDICATION: Right-sided predominant pelvic pain post trauma TECHNIQUE: Anteroposterior view of the pelvis and anteroposterior and frog-leg lateral views of the left hip and anteroposterior and frog-leg lateral views of the right hip and were obtained. COMPARISON: Radiographs dated 07/25/2024 FINDINGS: Again seen is a left total hip arthroplasty with thin rim of lucency surrounding the acetabular component, increasing acetabular protrusion with cephalad and medial migration of the acetabular component. There is disruption of the smooth curve of the medial cortex along a mottled quadrilateral plate which suggests a possible age-indeterminate fracture. No lucency about the femoral component. There is a minimally displaced fracture extending from the right superior pubic ramus and the right pubic body. No other fractures identified. At least moderate lower lumbar spondylosis with severe lower lumbar facet osteoarthritis. IMPRESSION: 1. Acute minimally displaced fracture at the junction of the right superior pubic ramus and right pubic body. 2. Likely loosening of the acetabular component of a left total hip arthroplasty with thin rim of surrounding lucency and acetabular protrusion with progressive remodeling of the acetabulum and progressive superior and medial migration of the acetabular component. 3. Possible age-indeterminate fracture along the remodeled quadrilateral plate of the left acetabulum. Reviewed, dictated and finalized at location A. IMPRESSION: 1. Acute minimally displaced fracture at the junction of the right superior pub ic ramus and right pubic body. 2. Likely loosening of the acetabular component of a left total hip arthroplast y with thin rim of surrounding lucency and acetabular protrusion with progressi ve remodeling of the acetabulum and progressive superior and medial migration o f the acetabular component. 3. Possible age-indeterminate fracture along the remodeled quadrilateral plate of the left acetabulum.
--- OUTSIDE RECORDS SUMMARY | 2025-03-06 08:17 | XMS_ITS | Clinical Summary ---
Author Organization [facility] Address [address] [place] [address] Care Team Providers Care Senior Staff Accountant Name Role Phone Praveena Acosta MD Primary Care Provider [phone] Source Comments [facility],non-owned Affiliates and Associated Physician Practices is amultiple site organization consisting of ambulatory clinics and hospital sitesin [place], [place], [place] and [place]. This disclosure is being madepursuant to the Care Everywhere program and may not contain all information available regarding this patient. Last updated 18.[facility] Allergies No known active allergies Medications * Be aware that medications may not be up to date on this document. Alwaysverify current medications with the patient. citalopram (CELEXA) 40 MG tablet Take 40 mg by mouth once daily Active ALPRAZolam (XANAX) 0.5 MG tablet Take 0.5 mg by mouth 3 times daily as needed for Anxiety Active traZODone (DESYREL) 50 MG tablet Take 50 mg by mouth at bedtime Active fluticasone propionate (FLONASE) 50 MCG/ACT nasal sprayIndication s:Acute pansinusitis, recurrence not specified [place] 2 sprays into each nostril once daily 1 bottles 09/18/2017 Active Family History Medical History Relation Name Comments Arthritis - Osteo Father Cancer - Colon Mother Relation Name Status Comments Father Mother Social History Tobacco Use Types Packs/Day Years Used Date Smoking Tobacco: Never Smokeless Tobacco: Never Comments No Sex and Gender Information Value Date Recorded Sex Assigned at Not on file Legal Sex Female 8:30 AM [employer]IDE [employer] Gender Identity Not on file Sexual Orientation Not on file Last Filed Vital Signs Vital Sign Reading Time Taken Comments Blood Pressure 126/82 09/18/2017 3:56 PM CDT Pulse 84 09/18/2017 3:56 PM CDT Temperature 36.9 C (98.5 F) 09/18/2017 3:56 PM CDT Respiratory Rate 16 09/18/2017 3:56 PM CDT Oxygen Saturation 96% 09/18/2017 3:56 PM CDT Inhaled Oxygen Concentration - - Weight 77.1 kg (170 lb) 09/18/2017 3:56 PM CDT Height 172.7 cm (5' 8) 09/18/2017 3:56 PM CDT Body Mass Index [...] SCREENING 1950 LIPID TESTING 1950 MAMMOGRAM 1950 HEPATITIS C SCREENING 03/15/1968 DTAP/TDAP/TD VACCINES (1 - Tdap) 1969 PNEUMOCOCCAL VACCINE 50+ (1 of 1 - PCV) 2000 ZOSTER VACCINE (1 of 2) 2000 SCREENING FOR DIABETES 09/18/2017 DEPRESSION SCREENING 06/18/2024 COVID-19 VACCINE (1 - 2023-2 5 season) 2025 INFLUENZA VACCINE (#1) 2025 Respiratory Syncytial Virus (RSV) Vaccine Pt: or [...] patient's age to complete this topic MENINGOCOCCAL (Group B) VACC INE SHARED DECISION-MAKING Aged Out No longer eligibl e based on patient's age to complete this topic MENINGOCOCCAL GROUPS A/C/Y/W VACCINE Aged Out No longer eligible b ased on patient's age to complete this topic Insurance MEDICARE MEDICARE Care Teams Senior Staff Accountant Relationship Specialty Start Date End Date Praveena Acosta MD [address] [place] [address] PCP - General Family Medicine 09/18/17
--- NOTE | 2025-03-06 08:18 | ECG_ITS ---
Test Date: 2025-03-06 08:31:38 Measurements Intervals Miranda Rate: 105 P: 43 DC: 168 QRS: -55 QRSD: 102 T: 81 QT: 285 QTc: 378 Interpretive Statements SINUS TACHYCARDIA PATTERN CONSISTENT WITH PULMONARY DISEASE INCOMPLETE RIGHT BUNDLE BRANCH BLOCK [90+ ms QRS DURATION, TERMINAL R IN V1/V2, 40+ ms S IN I/aVL/V4/V5/V6] LEFT ANTERIOR FASCICULAR BLOCK [QRS AXIS <= -45, QR IN I, RS IN II] NONSPECIFIC ST & T-WAVE ABNORMALITY ABNORMAL ECG Electronically Signed On 03-06-2025 13:02:14 CDT by Bartolome Escobar M.D.
--- NOTE | 2025-03-06 08:38 | ED.GENADULT ---
HPI - General Adult General Chief complaint: Fall Stated complaint: FALL-HIP PAIN Time Seen by Provider: 03/06/25 08:09 History of Present Illness HPI narrative: 74-year-old female presents emergency department for evaluation after having a ground level fall on Sunday. Patient states that she does have a history of a left hip repaired on May. patient reports she has been doing well. Patient did have a ground level fall on Sunday and struck her head. Patient did decline to be transferred to the emergency department at that time. Patient reports since the fall she has had bilateral hip pain and neck pain. Related Data Home Medications ?Medication ?Instructions ?Recorded ?Confirmed ?Last Taken ?Type fexofenadine 180 mg tablet 180 mg PO DAILY 10/21/20 07/25/24 06/03/24 History (Toya Allergy) multivitamin 1 tablet PO DAILY 10/21/20 07/25/24 Unknown History melatonin 10 mg capsule 10 mg PO QHS PRN insomnia 04/27/21 07/25/24 Unknown History Allergies Allergy/AdvReac Type Severity Reaction Status Date / Time oxytetracycline Allergy Unknown Unknown Verified 03/06/25 08:15 Review of Systems Review of Systems: All systems reviewed & are unremarkable except as noted in HPI and below PMFSH Past Medical History Medical History ) Osteopenia DEXA scan 2022 demonstrated T-score-1.9 left hip Normal colonoscopy Hiatal hernia Anxiety Surgical History Surgical History ) S/P total hip arthroplasty Dental root implant present Lower jaw History of left knee replacement (03/2015) Dr. Shankar Malone Status post cataract extraction of both eyes with insertion of intraocular lens History of esophagogastroduodenoscopy (EGD) Family History Family History ) Other Family history of arthritis Hypertension Social History Social History ) Social History: She lives in [facility]. She ambulates with a cane. To lifelong nonsmoker and denies alcohol use. She has a cat. Code status: Currently full code but she is unsure if she would actually want her wrote measures if her heart were to stop. She wants some time to consider her options. POA: Dontrell (step daughter), she has a living will Smoking status: Never smoker Second hand tobacco smoke exposure: No Alcohol intake: never Substance use: never Substance use type: does not use Do You Feel Safe in your Home?: No Lack of Transportation: No Lack of Food: Never True Current Housing: I Have Housing Concerned About Future Housing: No Difficulty Paying Gas/Electric Bills: No Difficulty Paying for Meds: No Currently Unemployed: No Education: Bachelor's Degree Difficulty w/ Childcare or Family Care: No [facility] arrangements: [facility] Additional living arrangements comments: [place] independently. She has a cat. Occupation/Education: retired Gender identity (if verbalized by the patient): Female Spiritual care concerns: No Agree to blood products: Yes Exam Narrative: APPEARANCE: Well appearing, no pain, no distress, well-nourished. HEAD: normocephalic, Superficial laceration to left baptism. EYES: PERRLA/EOMI, conjunctivae clear. NOSE: Normal no drainage EARS:TMS clear with good light reflex. THROAT: Pharynx clear, no exudate. NECK: Supple. No adenopathy, no masses. RESPIRATORY: Airway patent, respirations nonlabored. Clear to auscultation bilaterally, no rales, rhonchi, wheezing. CARDIOVASCULAR: Regular rate and rhythm without murmurs rubs or gallops. ABDOMINAL: Soft, nontender, nondistended, normal bowel sounds MUSCULOSKELETAL: Left hip tenderness to palpation NEURO: Alert. Cranial nerves II through XII intact. Good gait. Good coordination SKIN: Warm, dry. Normal Color Course Vital Signs Vital signs: Vital Signs Temperature 98.2 F 03/06/25 07:57 Pulse Rate 110 H 03/06/25 07:57 Respiratory Rate 16 03/06/25 07:57 Blood Pressure 126/70 03/06/25 07:57 Pulse Oximetry 96 03/06/25 07:57 Temperature 98.2 F 03/06/25 07:57 Pulse Rate 112 H 03/06/25 12:01 Respiratory Rate 22 H 03/06/25 12:01 Blood Pressure 112/53 L 03/06/25 12:01 Pulse Oximetry 92 03/06/25 12:01 Medical Decision Making [facility] Narrative Medical decision making narrative: 74-year-old female present to the emergency department for evaluation for pelvic pain after having a fall on Sunday. Patient does have fractures of the superior and inferior pubic ramus on the left, superior pubic ramus on the right, coccyx. And a acetabular fracture of the left. Head and neck CT were negative for acute intracranial abnormality or fracture/dislocation. I discussed the case with orthopedics, erica, and he prefer the patient be transferred to a tertiary care center due to the disruption of the arthroplasty and having a periprosthetic fracture. And is not established [facility] or [facility] and patient was willing to go to [facility]. Patient was updated as an ED transfer to [facility]. Patient was updated with the plan for transfer. All questions concerns were addressed. Differential Diagnosis Differential Diagnosis: Pelvic fracture, hip fracture, subdural hematoma, subarachnoid hemorrhage Vital Signs Vital Signs: Vital Signs Temperature 98.2 F 03/06/25 07:57 Pulse Rate 110 H 03/06/25 07:57 Respiratory Rate 16 03/06/25 07:57 Blood Pressure 126/70 03/06/25 07:57 Pulse Oximetry 96 03/06/25 07:57 Temperature 98.2 F 03/06/25 07:57 Pulse Rate 112 H 03/06/25 12:01 Respiratory Rate 22 H 03/06/25 12:01 Blood Pressure 112/53 L 03/06/25 12:01 Pulse Oximetry 92 03/06/25 12:01 Lab Data Lab results reviewed: Yes I reviewed the patient's lab results. 03/06/25 11:52 03/06/25 11:52 Labs: Lab Results 03/06/25 Range/Units 11:52 WBC 14.0 H (4.5-10.0) K/mm3 RBC 3.70 L (4.2-5.4) M/mm3 Hgb 10.8 L (12.0-15.0) g/dL Hct 32.9 L (37.0-47.0) % MCV 88.9 (80-100) fl MCH 29.2 (26-34) pg MCHC 32.8 (32-36) g/dl RDW 14.7 H (11.5-14.5) % Plt Count 138 L (150-375) k/mm3 MPV 10.1 (7.4-10.4) fl Immature Gran % (Auto) 1.2 H (0-0.5) % Neut % (Auto) 88.0 H (45.5-73.1) % Lymph % (Auto) 4.9 L (18.3-44.2) % Allen % (Auto) 5.5 (2.6-8.5) % Eos % (Auto) 0.3 (0-4.4) % Baso % (Auto) 0.1 L (0.2-1.2) % Lymph # (Auto) 0.68 L (0.9-3.2) K/mm3 Allen # (Auto) 0.8 H (0.1-0.6) K/mm3 Eos # (Auto) 0.0 (0-0.3) K/mm3 Baso # (Auto) 0.0 (0.0-0.1) K/mm3 Abs Immat Gran (auto) 0.17 H (0.00-0.031) K/mm3 Absolute Neuts (auto) 12.3 H (1.3-6.7) K/mm3 Absolute Nucleated RBC 0.000 (0.0-0.012) K/mm3 Nucleated RBC % 0.0 (0.0-0.2) % % Immature Plt Fraction 4.0 (0.9-11.2) % PT 17.6 H (11.1-14.7) Seconds INR 1.5 APTT 35.6 (22.3-36.8) Seconds Sodium 131 L (137-145) mmol/L Potassium 3.6 (3.4-5.0) mmol/L Chloride 102 (98-107) mmol/L Carbon Dioxide 23 (22-30) mmol/L Anion Gap 6 (4-12) mmol/L BUN 16 (7-17) mg/dL Creatinine 0.76 (0.7-1.0) mg/dL Estim Creat Clear Calc 53 ml/min Estimated GFR > 60 (59 - ) Glucose 105 (65-110) mg/dL Calcium 8.8 (8.4-10.2) mg/dL Total Bilirubin 1.5 H (0.2-1.3) mg/dL AST 71 H (14-36) U/L ALT 36 H (6-35) U/L Alkaline Phosphatase 100 (38-126) U/L Total Protein 6.8 (6.3-8.2) g/dL Albumin 3.9 (3.5-5.1) g/dL Imaging Data Radiologist's impression: Impressions Head CT 03/06/25 08:48 IMPRESSION: 1. Old infarcts in the bilateral basal ganglia. 2. Stable moderate nonspecific cerebral white matter disease, which likely represents chronic small vessel ischemic disease. Cervical Spine CT 03/06/25 08:49 IMPRESSION: 1. No acute findings. Hip/Pelvis X-Ray 03/06/25 09:02 IMPRESSION: 1. Acute minimally displaced fracture at the junction of the right superior pubic ramus and right pubic body. 2. Likely loosening of the acetabular component of a left total hip arthroplasty with thin rim of surrounding lucency and acetabular protrusion with progressive remodeling of the acetabulum and progressive superior and medial migration of the acetabular component. 3. Possible age-indeterminate fracture along the remodeled quadrilateral plate of the left acetabulum. Pelvis CT 03/06/25 09:30 IMPRESSION: 1. Bilateral fractures detailed above 2. Hemorrhage within the pelvis detailed above, follow-up suggested to assess Discharge Plan Discharge Clinical Impression: Pelvic fracture, Acetabulum fracture, left, Periprosthetic fracture around internal prosthetic left hip joint Patient Disposition: Acute Care Hospital Condition: Stable Patient Language: Greenlandic Prescriptions: No Action fexofenadine [Toya Allergy] 180 mg tablet 180 mg PO DAILY multivitamin Tablet 1 tablet PO DAILY melatonin 10 mg capsule 10 mg PO QHS PRN (Reason: insomnia) aspirin 325 mg Tablet,Delayed Release (Dr/Ec) 325 mg PO Q12HR 28 Days Qty: 56 0RF oxycodone-acetaminophen 5-325 mg Tablet 1 tablet PO Q4-6H PRN (Reason: pain) Qty: 40 0RF trazodone 50 mg tablet 50 mg PO QHS Qty: 90 4RF alprazolam 0.5 mg tablet 0.5 mg PO TID PRN (Reason: anxiety) Qty: 90 1RF bupropion HCl 100 mg tablet sustained-release 12 hr 100 mg PO QAM Qty: 30 3RF citalopram 40 mg tablet 40 mg PO DAILY Qty: 90 1RF Follow-up/Referrals: Praveena Acosta MD [Primary Care Provider, Family Practice]
--- NOTE | 2025-03-06 09:23 | PC.NURSE ---
Pt. to CT.
--- NOTE | 2025-03-06 10:49 | PC.NURSE ---
No swelling upon inspection to bilateral hips or bilateral thighs. Small bruise to anterior of R. thigh.
[2025-03-06] MEDS: traMADol HCL (*CRX) 50 MG TABLET PO (10:51)
[2025-03-06 12:00] LABS: Hematocrit 32.9 % (37.0-47.0); Hemoglobin 10.8 g/dL (12.0-15.0); Immature Granulocyte Percent A 1.2 % (0-0.5); Immature Platelet Fraction Pct 4.0 % (0.9-11.2); Lymphocytes Absolute Auto 0.68 K/mm3 (0.9-3.2); Mean Corpuscular HGB Conc 32.8 g/dl (32-36); Mean Corpuscular Hemoglobin 29.2 pg (26-34); Mean Corpuscular Volume 88.9 fl (80-100); Nucleated Red Blood Cells Absolute Auto 0.000 K/mm3 (0.0-0.012); Nucleated Red Blood Cells Perc 0.0 % (0.0-0.2); Platelet Count Result 138 k/mm3 (150-375); Red Blood Count 3.70 M/mm3 (4.2-5.4); White Blood Count 14.0 K/mm3 (4.5-10.0)
[2025-03-06 12:09] LABS: INR 1.5; Prothrombin Time 17.6 Seconds (11.1-14.7)
[2025-03-06 12:10] LABS: Partial Thromboplastin Time 35.6 Seconds (22.3-36.8)
[2025-03-06 12:20] LABS: Alanine Aminotransferase 36 U/L (6-35); Albumin Level 3.9 g/dL (3.5-5.1); Alkaline Phosphatase 100 U/L (38-126); Anion Gap 6 mmol/L (4-12); Aspartate Amino Transferase 71 U/L (14-36); Bilirubin,Total 1.5 mg/dL (0.2-1.3); Blood Urea Nitrogen 16 mg/dL (7-17); Calcium 8.8 mg/dL (8.4-10.2); Carbon Dioxide 23 mmol/L (22-30); Chloride 102 mmol/L (98-107); Estimated CRCL calculation 53 ml/min; Estimated Glomerular Filt Rate > 60; Glucose 105 mg/dL (65-110); Potassium 3.6 mmol/L (3.4-5.0); Sodium 131 mmol/L (137-145); Total Protein 6.8 g/dL (6.3-8.2)
== END 2025-03-06 14:15 | disposition short-term general hospital (02) ==
LOC: ANHED 08:16
PROVIDERS: Emergency Provider Emergency Medicine; PCP Family Medicine
DX: S32.402A Unspecified fracture of left acetabulum, initial encounter for closed fracture (principal); M97.02XA Periprosthetic fracture around internal prosthetic left hip joint, initial encounter; S32.2XXA Fracture of coccyx, initial encounter for closed fracture; S32.592A Other specified fracture of left pubis, initial encounter for closed fracture; S32.591A Other specified fracture of right pubis, initial encounter for closed fracture; M85.80 Other specified disorders of bone density and structure, unspecified site; K44.9 Diaphragmatic hernia without obstruction or gangrene; F41.9 Anxiety disorder, unspecified; Z96.1 Presence of intraocular lens; Z98.42 Cataract extraction status, left eye; Z98.41 Cataract extraction status, right eye; R90.82 White matter disease, unspecified; R00.0 Tachycardia, unspecified; R94.31 Abnormal electrocardiogram [ECG] [EKG]; I45.2 Bifascicular block; W18.30XA Fall on same level, unspecified, initial encounter
CPT/HCPCS: 36415; 70450; 72125; 72192; 73521; 80053; 85025; 85055; 85610; 85730; 93005; 99285; A9270